=== PATIENT | female | born 1995 | race Two or more races ===

== ENCOUNTER 2024-02-03 10:47 | Emergency (ER) | payer SELFPAY ==
--- NOTE | ~2024-02-03 | XR_ITS ---
EXAMINATION: XR ANKLE, LEFT CLINICAL INFORMATION: Status post fall with left ankle pain COMPARISON: 07/21/2009 TECHNIQUE: AP, lateral, and mortise views of the left ankle. FINDINGS: No fracture. Alignment is anatomic. No erosions. Joint spaces are maintained. Soft tissues are normal. XR/XR ankle LT min 3V IMPRESSION: Normal left ankle.
[2024-02-03 11:01] VITALS: BP 142/90; PULSE 73; RESP 18; TEMP 36.7; O2SAT 100; BMI 41.5
--- NOTE | 2024-02-03 13:12 | ED_ITS ---
HPI - Extremity Injury (Lower) General Chief Complaint: Extremity Injury, Lower Stated Complaint: Fell down stairs - ankle injury Time Seen by Provider: 02/03/24 13:05 Source: patient Mode of arrival: ambulatory Limitations: no limitations History of Present Illness HPI Narrative: 28-year-old female with no significant past medical history presents emergency department with complaints of left ankle pain. She reports she fell down the stairs earlier today and is having difficulty with weight-bearing. She denies any paresthesias, erythema, ecchymosis, or significant swelling of the foot. She reports that she is full range of motion of the that there is pain with range of motion. She denies any head strike, loss consciousness, nausea, vomiting, confusion after the fall and continues to deny these symptoms. Pertinent positives and negatives discussed in HPI Related Data Allergies Allergy/AdvReac Type Severity Reaction Status Date / Time No Known Allergies Allergy Verified 02/03/24 11:01 Review of Systems Review of Systems: Yes all other systems are reviewed and are negative [facility] Social History Social History Advance Directives: No Physical Exam Vital Signs: Vital Signs: Last Vital Signs Temp 98.0 F 02/03/24 11:01 Pulse 73 02/03/24 11:01 Resp 18 02/03/24 11:01 BP 142/90 H 02/03/24 11:01 Pulse Ox 100 02/03/24 11:01 O2 Del Method Room Air 02/03/24 11:01 BMI result Body Mass Index 41.5 Nursing notes and vital signs reviewed. GENERAL APPEARANCE: A&0 x 4, generally well appearing, no acute distress HENMT: Normal to inspection, atraumatic, face symmetrical. Normal external ears, nose, and oropharynx clear. EYE: PERRLA, EOM intact, structures appear normal NECK: Supple without stiffness or restricted ROM. HEART: Normal rate and regular rhythm, normal S1/S2, no M/R/G LUNGS: LS CTA, moving air well. Able to speak in complete sentences. No crackles, wheezes, or rhonchi auscultated BACK: No CVAT, no obvious deformity EXTREMITIES: TTP left lateral ankle with decreased ROM. Normal capillary refill. NEUROLOGICAL: Alert and oriented, moving all 4 extremities with equal strength. CN not formally tested but appearing grossly intact. Observed to ambulate with normal gait. Cognition normal SKIN: Warm and dry without any lesions, rash, or visible sores Medical Decision Making Medical Decision Making MDM Narrative: Old records reviewed for previous imaging, lab studies, ECGs, and notes. Patient was assessed the emergency department with no acute distress or toxicity noted. X-ray left ankle completed which I have independently interpreted as negative for acute fractures or dislocations. Crutches offered and declined. Bruno wrap applied to left ankle and patient educated to rest, ice, compress, and elevate ankle for comfort. Contact information for Orthopedics provided as needed. Patient is safe for discharge at this time with plan for [id number] Tylenol and/or NSAID such as ibuprofen or naproxen for fever/discomfort with dosing as per packaging. HPI, PE, diagnostics, and plan discussed with patient and family with no unanswered questions at this time. Strict return precautions given to return to the emergency department with new, worsening, or concerning emergent symptoms. Recommended to follow-up with there primary care provider in 24-48 hours for further treatment and management. Differential Diagnosis Differential Diagnoses: The differential diagnosis associated with the presentation includes But not limited to fracture, dislocation, sprain, strain, contusion Discharge Plan Discharge Clinical Impression: Ankle sprain and strain Patient Disposition: Home, Self-Care Instructions: Ankle Sprain (ED), How to Use an Elastic Bandage (ED), R.I.C.E. Treatment (ED), Ice Pack Application (ED) Additional Instructions: Your seen in the emergency department for evaluation after falling down the stairs this morning. Your x-rays showed no evidence of fracture or dislocation your symptoms are consistent with a sprain or strain. You are safe for discharge at this time with plan for management of fever or discomfort with [id number] Tylenol and/or NSAID such as ibuprofen or naproxen with dosing as per packaging. Please return to the emergency department with new, worsening, or concerning emergent symptoms. Recommended to follow-up with your primary care provider in 24-48 hours for further treatment and management. Thank you for choosing [facility]. Referrals: [facility] [Provider Group] [facility] [place] [facility] [[facility]] [facility] [place] [facility]] [facility] [Provider Group] Stand Alone Forms: Work/School Release Print Language: Arabic
[2024-02-03 13:47] VITALS: BP 142/90; PULSE 73; RESP 18; TEMP 36.6; O2SAT 100
== END 2024-02-03 13:49 | disposition home or self-care (01) ==
PROVIDERS: Emergency Provider Emergency Medicine
DX: S93.402A Sprain of unspecified ligament of left ankle, initial encounter (principal); S96.912A Strain of unspecified muscle and tendon at ankle and foot level, left foot, initial encounter; W10.9XXA Fall (on) (from) unspecified stairs and steps, initial encounter; Y93.9 Activity, unspecified; Y92.9 Unspecified place or not applicable; Y99.9 Unspecified external cause status
CPT/HCPCS: 73610; 99282; 99283

== ENCOUNTER 2024-07-18 19:16 | Emergency (ER) | payer OTHER, SELFPAY ==
[2024-07-18 19:20] VITALS: BP 147/88; PULSE 71; RESP 18; TEMP -13.4; TEMP 7.9; O2SAT 99; BMI 41.9
--- NOTE | 2024-07-18 19:20 | ED.GENADULT ---
HPI - General Adult General Chief complaint: General Medical Stated complaint: right side of the face pain Time Seen by Provider: 07/18/24 21:56 Source: patient Mode of arrival: ambulatory Limitations: no limitations History of Present Illness ED Provider: DR. Marx HPI narrative: 29-year-old female came in for evaluation of right facial pain for the past 2 weeks, feels like throbbing pain radiating from the right ear toward the right maxillary area, no nasal discharge or congestion, coughing, sneezing, no generalized body ache. No trauma to the face, no dental pain issue with the patient, no pain at the TMJ. Related Data Previous Rx's ?Medication ?Instructions ?Recorded amoxicillin 500 mg-potassium 1 tab PO BID #14 tabs 07/18/24 clavulanate 125 mg tablet (Augmentin) naproxen 500 mg tablet 500 mg PO BID PRN pain #10 tabs 07/18/24 Allergies Allergy/AdvReac Type Severity Reaction Status Date / Time No Known Allergies Allergy Verified 07/18/24 19:22 Review of Systems Review of Systems: All other systems are reviewed and are negative Constitutional: Reports as per HPI and Reports no additional constitutional complaints Eyes: Reports as per HPI and Reports no additional eye complaints Reports system reviewed and no additional complaints, except as documented Cardiovascular: Reports as per HPI and Reports no additional cardiovascular complaints Respiratory: Reports as per HPI and Reports no additional respiratory complaints Gastrointestinal: Reports as per HPI and Reports no additional gastrointestinal complaints Genitourinary: Reports no additional female genitourinary complaints Musculoskeletal: Reports no additional musculoskeletal complaints Skin/Breast: Reports system reviewed and no additional complaints, except as docu Psychiatric: Reports no additional psychiatric complaints Endocrine: Reports no additional endocrine complaints Hematologic/Lymphatic: Reports no additional hematologic/lymphatic complaints Allergic/Immunologic: Reports no additional allergic/immunologic complaints Reports system reviewed and no additional complaints, except as documented and Reports Abnormal speech present [facility] Social History Social History Advance Directives: No Advance Directives Information Provided: No Do you have a plan to hurt others: No Plan Physical Exam ED Vital Signs: Vital Signs - 24 hr 07/18/24 19:20 Temperature 7.9 F L Pulse Rate 71 Respiratory Rate 18 Blood Pressure 147/88 H Pulse Oximetry 99 Oxygen Delivery Method Room Air BMI result Body Mass Index 41.9 Vital signs have been reviewed and appear to be correct. Blood pressure elevated. Heart rate normal. Respiratory rate normal. Temperature normal. Oxygen saturation normal. Appearance: Alert. Oriented X3. No acute distress. Head: Normal external exam. Normocephalic. Atraumatic. No Banda signs noted. No raccoon eyes noted Eyes: PERRLA. EOMI. Conjunctiva and sclera normal. Eyelids normal. ENT: Cerumen impaction in the right auditory canal,Pharynx normal. Uvula midline. Moist mucous membranes. No trismus noted. No drooling noted. No muffled voice noted. Tender on percussion over right maxillary sinus. no TMJ deformity or clicking no pain with opening closing the mouth. Neck: Normal inspection. Neck supple. FROM. No adenopathy. Thyroid Normal. No meningeal signs. No neck mass noted. CVS: Normal heart rate and rhythm. Heart sound normal. No murmurs noted. Pulses normal throughout. Respiratory: No respiratory distress. Painless inspiration. Breath sounds normal. No wheezes/rales/rhonchi noted. Chest nontender. No accessory muscle usage noted or decreased air movement noted. Abdomen: Soft and nontender. Bowel sounds normal in all 4 quadrants. No distention noted. No organomegaly noted. No visible injury noted. Back: No CVA tenderness. Full range of motion noted. Skin: Skin warm and dry. Normal skin color. Normal skin turgor. No rashes/lesions/lacerations noted. Extremities: No lower extremity edema. Extremities exhibit normal range of motion. Extremities nontender. Neuro: Oriented X 3. Cranial nerve exam: II-XII are grossly intact No motor deficit. No sensory deficit. Reflexes normal. Course Course Course Narrative: This is an RME done by LM Duarte: Additional HPI, ROS, PE not included below will be deferred to primary provider. 29yo F presenting with right sided throbbing facial pain for several weeks radiating down from the congregation. Denies headache, fevers, chills, recent illness, tingling, numbness. Patient states she has a broken tooth on the ipsilateral side of face. Appearance: Alert.? Oriented X3.? No acute cardiopulmonary distress distress.? Head: Normocephalic, atraumatic. CVS: Pulses normal.?Temporal pulse 1+ Respiratory: No respiratory distress.? Skin: ? Normal skin color. No rash on face/ Neuro: Oriented X 3. EOM intact. Face symmetric at rest, with smile, and eyebrow raise. Reevaluation(s) Reevaluation #1: right auditory canal cerumen impaction s/p auditory canal irrigation and disimpaction of the cerumen. Right maxillary sinus pain and tenderness on percussion consistent with sinusitis. Will start the patient on Augmentin, naproxen and follow-up with PCP. Time: 22:47 Medical Decision Making Differential Diagnosis Differential Diagnoses: The differential diagnosis associated with the presentation includes ( Acute maxillary sinusitis, dental decay, dental abscess, TMJ arthritis.) Admission/Observation Consideration of admission/observation: Escalation of care including admission/observation considered Discharge Plan Discharge Clinical Impression: Cerumen impaction, Acute maxillary sinusitis Patient Disposition: Home, Self-Care Instructions: Sinusitis (ED) Prescriptions: New amoxicillin-pot clavulanate [Augmentin] 500-125 mg tablet 1 tab PO BID Qty: 14 0RF naproxen 500 mg tablet 500 mg PO BID PRN (Reason: pain) Qty: 10 0RF Referrals: Yumiko Falk MD [Primary Care Provider] - Print Language: Frisian
[2024-07-18] MEDS: NaPROXEN 500 MG TABLET PO (22:56)
[2024-07-18] MEDS: oxyCODONE HCl Immed Release 5 MG TABLET PO (22:57)
[2024-07-18] MEDS: Amoxicillin/Potassium Clav 500 MG TABLET PO (22:57)
[2024-07-18 22:59] VITALS: BP 147/88; PULSE 71; RESP 18; TEMP 36.6; O2SAT 99
== END 2024-07-18 23:00 | disposition home or self-care (01) ==
PROVIDERS: Emergency Provider Emergency Medicine; PCP Internal Medicine
DX: H61.21 Impacted cerumen, right ear (principal); J01.00 Acute maxillary sinusitis, unspecified
CPT/HCPCS: 69209; 99283

== ENCOUNTER 2024-08-29 13:46 | Outpatient (AMB) | payer OTHER, SELFPAY ==
--- NOTE | 2024-08-29 13:48 | A.OFFPC_ITS ---
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 Allergies No Known Allergies Allergy (Verified 08/29/24 13:48) Medication List - Last Reconciled 08/29/24 by Yumiko Falk MD No Known Home Meds Tobacco use date assessed: 08/29/24 Dental Screening Dental Screen Date: 08/29/24 Did you have a dental visit in the last 12 months?: Yes Did you have a dental problem in the last 6 months where you did not have access to dental care?: No Was dental information given to patient?: Patient has dentist HPI MAIL [employer] Est Care HPI Details Patient is 29-year-old female came in for establish care visit and physical examination Patient is in need of OBGYN, she has heavy menstrual cycle which is continues I see that her depression screening is positive Patient says that she does have thoughts of suicide but she will not act on them She has been depressed for the past 2 years after she broke up with a boyfriend At that time she found out that she has encountered herpes She is tearful talking about it Explained to her what herpes infection is like, it is a cold so virus which is a common problem And she can take valacyclovir if needed, she says that she gets break out close to her periods and she used to take valacyclovir and then she stopped I see that her blood pressure is slightly elevated as well She does admit to snoring at night we will need a sleep study down the road For now I am treating her with Wellbutrin 150 mg to be taken in the morning She is having difficulty sleeping at night, for that I have sent lorazepam 0.5 mg as patient also suffers from severe anxiety which present with nausea She also drink alcohol every now and then, we talked about nausea and alcohol Omeprazole might help which is [id number] or I can prescribe to her later She is complaining of urgency of urination which started when she gained a lot of weight 2 years ago We will talk about that more in this coming future For now she is to return in 3 weeks to follow-up on depression OBGYN referral placed Lab order placed to be done fasting [facility] Social History Housing: House Patient Tobacco Use Status: Never used Tobacco e-Cigarette/Vaping Use: Currently Using service: No Cognitive needs: No Hearing needs: No Vision needs: Yes Questionnaire PHQ-9 Over the last 2 weeks, how often have you been bothered by any of the following problems? 1. Little interest or pleasure in doing things: more than half the days 2. Feeling down, depressed, or hopeless: more than half the days 3. Trouble falling or staying asleep, or sleeping too much: nearly every day 4. Feeling tired or having little energy: nearly every day 5. Poor appetite or overeating: nearly every day 6. Feeling bad about yourself - or that you are a failure or have let yourself or your family down: nearly every day 7. Trouble concentrating on things, such as reading the newspaper or watching television: more than half the days 8. Moving or speaking so slowly that other people could have noticed. Or the opposite - being so fidgety or restless that you have been moving around a lot more than usual: nearly every day 9. Thoughts that you would be better off or of hurting yourself in some way: several days Total score: 22 Depression Screening Interpretation: Positive Depression Screening Follow-up: New Medication prescribed and Follow-up Visit Requested Depression Screening Done: Yes 24022 - PHQ-9 Billing: Yes Source: Developed by Drs. Helio Matute, Celina Monge, Nasim Charles and colleagues, with an educational johnson from [employer] Thrive Questionnaire Date Thrive assessed: 08/29/24 I am a: Patient What is your living situation today?: I have a steady place to live Within the past 12 months, did the food you bought not last and you didn't have the money to get more?: Never true Within the past 12 months, did you worry whether your food would run out before you got money to buy more?: I choose not to answer this question Do you have trouble paying for medicines?: No Do you have trouble getting transportation to medical appointments?: No Do you have trouble paying your heating and electricity bill?: No Do you have trouble taking care of your child, family member or friend?: No Do you have trouble with day-to-day activities such as bathing, preparing meals, shopping, managing finances, etc.?: No Are you currently unemployed and looking for a job?: No Are you interested in more education?: No Please select the resources that you would like help with: None Currently or been in a relationship where the following occur: No concerns reported THRIVE Score: 0 AUDIT C Alcohol Use Questionnaire (AUDIT-C) 1. How often do you have a drink containing alcohol?: 2-3 times a week 2. How many drinks containing alcohol do you have on a typical day when you are drinking?: 5 or 6 3. How often do you have six or more drinks on one occasion?: Weekly Total Score: 8 Score Reviewed/Action Taken: Yes DANIELE-7 AMB Questionnaire DANIELE-7 Date DANIELE - 7 assessed: 08/29/24 Feeling nervous, anxious, or on edge: 3 = Nearly every day Not being able to stop or control worryin = Several days Worrying too much about different things: 2 = More than half the days Trouble relaxin = More than half the days Being so restless that it is hard to sit still: 1 = Several days Becoming easily annoyed or irritable: 3 = Nearly every day Feeling afraid as if something awful might happen: 3 = Nearly every day Total DANIELE-7 score (0-4 normal; 5-9 mild; 10-14 moderate; 15-21 severe): 15 Source: Developed by Drs. Helio Matute, Celina Monge, Nasim Charles and colleagues, with an educational johnson from [employer] DANIELE-7 Assessment Billing DANIELE-7 Assessment Tool: DANIELE-7 Assessment 61535 Review of Systems Const Denies chills and Denies fever(s) Eyes Denies blurry vision ENT Denies nasal discharge, Denies nasal obstruction, Denies odynophagia and Denies sinus pain Card Denies chest pain at rest and Denies chest pain with activity Resp Denies cough and Denies hemoptysis GI Denies diarrhea, Denies odynophagia, Denies vomiting and Denies hematemesis Reports as per HPI Musc Denies abnormal gait Skin/Breast Reports as per HPI Neuro Denies Neuro-related abnormal movements, Denies Abnormal speech present, Denies abnormal gait and Denies Sensory deficit (Neuro) Endo Reports as per HPI Lenny/Lymph Reports as per HPI Aller/Immun Reports as per HPI Physical exam (Primary Care) Vital Signs: Last Vital Signs Pulse 78 08/29/24 13:51 BP 138/82 08/29/24 13:51 Pulse Ox 99 08/29/24 13:51 Oxygen Delivery Method Room Air 08/29/24 13:51 BMI result Body Mass Index 41.4 Tobacco/Smoking Status: Tobacco use Status Tobacco use date assessed 08/29/24 08/29/24 13:49 Patient Tobacco Use Status Never used Tobacco 08/29/24 13:54 e-Cigarette/Vaping Use Currently Using 08/29/24 13:54 PHQ-9: PHQ-9 Score PHQ-9: Total score 08/29/24 13:49 Depression Screening Interpretation: Positive Depression Screening Follow-up: New Medication prescribed and Follow-up Visit Requested Thrive Assessment: Date of Thrive Assessment Date Thrive assessed 08/29/24 08/29/24 13:49 Currently or been in a relationship where the following occur: No concerns reported Const General: cooperative, comfortable and no acute distress Orientation/consciousness: patient oriented x3 HENMT Head: Yes normocephalic and Yes atraumatic Eyes General: appearance normal, both eyes and all related structures Pupils: Equal, round and reactive pupils present EOM: EOMs intact bilaterally Neck Neck: Yes supple and No lymphadenopathy Thyroid: Thyroid normal Lymphatic: no lymphadenopathy noted Resp Effort & Inspection: normal respiratory effort and able to speak in complete sentences Auscultation: clear to auscultation bilaterally Cardio Heart sounds: S1 normal heart sound present and S2 normal heart sound present GI Palpation (GI): Soft to palpation and nontender Auscultation: normal bowel sounds General: Yes no CVA tenderness Back/Spine/Pelvis Back: no CVA tenderness Skin General skin exam: elasticity normal and turgor normal Neuro General: patient oriented x3 and gait normal Cranial nerves: Yes Equal, round and reactive pupils present Speech: No Abnormal speech present Sensory Exam: No Sensory deficit (Neuro) Coordination: tandem gait normal and Romberg test negative Extrem General: Yes normal exam except as noted and No edema Coding Level of Care Code New Pt Level 4 (15341) New Pt Prev Care 18-39yr(23132 Diagnoses Encounter for general adult medical examination with abnormal findings Z00.01 Major depressive disorder, severe F32.2 Urge incontinence of urine N39.41 Panic anxiety syndrome F41.0 Chronic nausea R11.0 Snoring R06.83 Prehypertension R03.0 Morbid obesity due to excess calories E66.01 Dysfunctional uterine bleeding N93.8 Additional Codes DANIELE-7 Assessment Billing - DANIELE-7 Assessment Tool: DANIELE-7 Assessment 97954 ([id number]) Assessment & Plan Assessment & Plan (1) Encounter for general adult medical examination with abnormal findings: Code(s): Z00.01 - Encounter for general adult medical examination with abnormal findings Category: Medical (2) Major depressive disorder, severe: Code(s): F32.2 - Major depressive disorder, single episode, severe without psychotic features Category: Medical (3) Urge incontinence of urine: Code(s): N39.41 - Urge incontinence Category: Medical (4) Panic anxiety syndrome: Code(s): F41.0 - Panic disorder [episodic paroxysmal anxiety] Category: Medical (5) Chronic nausea: Code(s): R11.0 - Nausea Category: Medical (6) Snoring: Code(s): R06.83 - Snoring Category: Medical (7) Prehypertension: Code(s): R03.0 - Elevated blood-pressure reading, without diagnosis of hypertension Category: Medical (8) Morbid obesity due to excess calories: Code(s): E66.01 - Morbid (severe) obesity due to excess calories Category: Medical (9) Dysfunctional uterine bleeding: Code(s): N93.8 - Other specified abnormal uterine and vaginal bleeding Category: Medical Plan Patient is 29-year-old female came in for establish care visit and physical examination Patient is in need of OBGYN, she has heavy menstrual cycle which is continues I see that her depression screening is positive Patient says that she does have thoughts of suicide but she will not act on them She has been depressed for the past 2 years after she broke up with a boyfriend At that time she found out that she has encountered herpes She is tearful talking about it Explained to her what herpes infection is like, it is a cold so virus which is a common problem And she can take valacyclovir if needed, she says that she gets break out close to her periods and she used to take valacyclovir and then she stopped I see that her blood pressure is slightly elevated as well She does admit to snoring at night we will need a sleep study down the road For now I am treating her with Wellbutrin 150 mg to be taken in the morning She is having difficulty sleeping at night, for that I have sent lorazepam 0.5 mg as patient also suffers from severe anxiety which present with nausea She also drink alcohol every now and then, we talked about nausea and alcohol Omeprazole might help which is [id number] or I can prescribe to her later She is complaining of urgency of urination which started when she gained a lot of weight 2 years ago We will talk about that more in this coming future For now she is to return in 3 weeks to follow-up on depression OBGYN referral placed Lab order placed to be done fasting Orders: Orders Complete Blood Count Auto Diff Today E66.01 - Morbid (severe) obesity due to excess calories, Z00.01 - Encounter for general adult medical examination with abnormal findings Comprehensive [place]. Panel Fast Today E66.01 - Morbid (severe) obesity due to excess calories, Z00.01 - Encounter for general adult medical examination with abnormal findings Vitamin D 25-OH (D2 and D3) Today E66.01 - Morbid (severe) obesity due to excess calories, Z00.01 - Encounter for general adult medical examination with abnormal findings TSH reflex Free T4 Today E66.01 - Morbid (severe) obesity due to excess calories, Z00.01 - Encounter for general adult medical examination with abnormal findings Lipid Panel Today E66.01 - Morbid (severe) obesity due to excess calories, Z00.01 - Encounter for general adult medical examination with abnormal findings Referrals [employer]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
[2024-08-29 13:51] VITALS: BP 138/82; PULSE 78; O2SAT 99; BMI 41.4
== END 2024-08-29 14:23 | disposition home or self-care (01) ==
PROVIDERS: PCP Internal Medicine; Visit Provider Internal Medicine
DX: Z00.00 Encounter for general adult medical examination without abnormal findings (principal); F32.2 Major depressive disorder, single episode, severe without psychotic features; E66.01 Morbid (severe) obesity due to excess calories; Z68.41 Body mass index [BMI] 40.0-44.9, adult; N39.41 Urge incontinence; F41.0 Panic disorder [episodic paroxysmal anxiety]; N93.8 Other specified abnormal uterine and vaginal bleeding; R11.0 Nausea; R06.83 Snoring; R03.0 Elevated blood-pressure reading, without diagnosis of hypertension

== ENCOUNTER → 2024-08-29 13:46 | Outpatient (BNVA) | payer OTHER, SELFPAY | PROVIDERS: PCP Internal Medicine; Visit Provider Internal Medicine | DX: Z00.01 Encounter for general adult medical examination with abnormal findings (principal); F32.2 Major depressive disorder, single episode, severe without psychotic features; N39.41 Urge incontinence; F41.0 Panic disorder [episodic paroxysmal anxiety]; R11.0 Nausea; R06.83 Snoring; R03.0 Elevated blood-pressure reading, without diagnosis of hypertension; E66.01 Morbid (severe) obesity due to excess calories; Z68.41 Body mass index [BMI] 40.0-44.9, adult; N93.8 Other specified abnormal uterine and vaginal bleeding | CPT/HCPCS: 96127 ==

== ENCOUNTER 2024-09-16 10:03 | Outpatient (REF) | payer OTHER, SELFPAY ==
[2024-09-16 11:06] LABS: MANUAL DIFF FLAG NO
[2024-09-16 11:28] LABS: Basophils Percent Auto 0.2 % (0-2); Eosinophils Absolute Auto 0.3 X10*3/uL (0.0-0.4); Eosinophils Percent Auto 2.6 % (0-4); Hematocrit 36.8 % (37.0-47.0); Hemoglobin 11.7 g/dl (12.0-16.0); Imm Gran Abs Auto 0.05 X10*3/uL (0.00-0.03); Imm Gran Pct Auto 0.5 % (0.0-0.4); Lymphocytes Absolute Auto 2.6 X10*3/uL (1.2-4.9); Lymphocytes Percent Auto 24.2 % (20-40); Mean Corpuscular HGB Conc 31.8 g/dl (31.0-35.0); Mean Corpuscular Hemoglobin 25.1 pg (27.0-33.0); Mean Platelet Volume 11.2 fL (9.4-12.3); Monocytes Absolute Auto 0.7 X10*3/uL (0.1-1.2); Monocytes Percent Auto 6.2 % (2-11); Neutrophils Percent Auto 66.3 % (45-73); Platelet Count 328 X10*3/uL (160-400); Red Blood Count 4.66 X10*6/uL (4.20-5.50); Red Cell Distribution Width 15.1 % (11.0-16.0); White Blood Count 10.6 X10*3/uL (4.8-10.8)
[2024-09-16 12:04] LABS: Alanine Aminotransferase 17 U/L (0-31); Albumin Level 4.3 g/dL (3.5-5.0); Alkaline Phosphatase 64 U/L (39-117); Anion Gap 11 (12-20); Aspartate Amino Transferase 15 U/L (5-31); Bilirubin Total 0.5 mg/dL (0.0-1.0); Blood Urea Nitrogen 12 mg/dL (9-16); Calcium 9.6 mg/dL (8.4-10.2); Carbon Dioxide 24 mmol/L (22-29); Chloride 108 mmol/L (96-108); Cholesterol 129 mg/dL (<200); Estimated Glomerular Filt Rate > 60; Glucose Fasting 99 mg/dL (60-99); HDL Cholesterol 27 mg/dL (>40); LDL Cholesterol Calculated 72 mg/dL (<100); Potassium 4.3 mmol/L (3.3-5.1); Sodium 139 mmol/L (135-145); Total Protein 7.3 g/dL (6.5-8.0); Triglycerides 151 mg/dL (<150)
[2024-09-16 12:07] LABS: TSH reflex Free T4 1.55 uIU/mL (0.32-4.0)
[2024-09-21 16:39] LABS: Vitamin D 25-OH, D2 <4 ng/mL; Vitamin D 25-OH, D3 15 ng/mL; Vitamin D 25-OH, Total 15 ng/mL (30-100)
== END 2024-09-16 10:04 | disposition home or self-care (01) ==
LOC: HO.HMGCLDS 10:03
PROVIDERS: PCP Internal Medicine; Visit Provider Internal Medicine
DX: Z00.01 Encounter for general adult medical examination with abnormal findings (principal); E66.01 Morbid (severe) obesity due to excess calories
CPT/HCPCS: 36415; 80053; 80061; 82306; 84443; 85025

== ENCOUNTER 2024-09-20 14:22 | Outpatient (AMB) | payer OTHER, SELFPAY ==
--- NOTE | 2024-09-20 14:31 | A.OFFPC_ITS ---
Vital Signs 09/20/24 14:32 Height 5 ft 4 in Weight 242 lb BMI 41.5 BP 120/82 Blood Pressure Location Lt brachial Position Sitting Pulse 96 Pulse Source Pulse Oximeter Pulse Oximetry (%) 99 Oxygen Delivery Method Room Air Intake Visit Reasons: 3 week follow up Allergies No Known Allergies Allergy (Verified 08/29/24 13:48) Medication List - Last Reconciled 09/20/24 by Yumiko Falk MD bupropion HCl SR (Wellbutrin SR) 150 mg PO QAM lorazepam 0.5 mg PO BEDTIME PRN Tobacco use date assessed: 09/20/24 Dental Screening Dental Screen Date: 09/20/24 Did you have a dental visit in the last 12 months?: Yes Did you have a dental problem in the last 6 months where you did not have access to dental care?: No Was dental information given to patient?: Patient has dentist HPI 3 week follow up HPI Details Patient is 29-year-old female came in today follow-up appointment She was started Wellbutrin 150 mg along with lorazepam to be taken at night As patient was severely depressed She is feeling much better she is able to sleep now depression has improved She is having difficulty losing weight her BMI is 41.5 I am increasing the Wellbutrin to 300 mg to aid in weight loss Patient also have urge incontinence which is causing distress I have sent Detrol 2 mg to be taken in the morning Labs done recently reviewed with the patient she has microcytic anemia with hemoglobin of 11.7 Secondary to heavy periods, she is to start iron supplement, sent Follow-up 3 months [facility] Social History Housing: House Patient Tobacco Use Status: Never used Tobacco e-Cigarette/Vaping Use: Currently Using service: No Cognitive needs: No Hearing needs: No Vision needs: Yes Questionnaire Thrive Questionnaire Date Thrive assessed: 08/22/24 I am a: Patient What is your living situation today?: I have a steady place to live Within the past 12 months, did the food you bought not last and you didn't have the money to get more?: Never true Within the past 12 months, did you worry whether your food would run out before you got money to buy more?: I choose not to answer this question Do you have trouble paying for medicines?: No Do you have trouble getting transportation to medical appointments?: No Do you have trouble paying your heating and electricity bill?: No Do you have trouble taking care of your child, family member or friend?: No Do you have trouble with day-to-day activities such as bathing, preparing meals, shopping, managing finances, etc.?: No Are you currently unemployed and looking for a job?: No Are you interested in more education?: No Please select the resources that you would like help with: None Currently or been in a relationship where the following occur: No concerns reported THRIVE Score: 0 DANIELE-7 AMB Questionnaire DANIELE-7 Date DANIELE - 7 assessed: 08/29/24 Source: Developed by Drs. Helio Matute, Celina Monge, Nasim Charles and colleagues, with an educational johnson from [employer]. Review of Systems Const Denies chills and Denies fever(s) ENT Denies epistaxis and Denies nasal discharge Card Denies chest pain Resp Denies chest congestion, Denies cough and Denies hemoptysis GI Denies diarrhea and Denies nausea Skin/Breast Denies rash Neuro Reports no additional complaints Psych Reports no additional complaints Endo Reports no additional complaints Physical exam (Primary Care) Vital Signs: Last Vital Signs Pulse 96 09/20/24 14:32 BP 120/82 09/20/24 14:32 Pulse Ox 99 09/20/24 14:32 Oxygen Delivery Method Room Air 09/20/24 14:32 BMI result Body Mass Index 41.5 Tobacco/Smoking Status: Tobacco use Status Tobacco use date assessed 09/20/24 09/20/24 14:34 Patient Tobacco Use Status Never used Tobacco 09/20/24 14:34 e-Cigarette/Vaping Use Currently Using 09/20/24 14:34 Thrive Assessment: Date of Thrive Assessment Date Thrive assessed 08/22/24 09/20/24 14:34 Currently or been in a relationship where the following occur: No concerns reported Const General: cooperative, comfortable and no acute distress Orientation/consciousness: patient oriented x3 HENMT Head: Yes normocephalic Eyes General: appearance normal, both eyes and all related structures Neck Neck: Yes supple Resp Effort & Inspection: normal respiratory effort, no cough and no stridor Cardio Rhythm: regular rhythm Heart sounds: S1 normal heart sound present and S2 normal heart sound present Skin General skin exam: turgor normal Neuro General: patient oriented x3, tone normal and moves all extremities Extrem Right lower extremity: no edema Left lower extremity: no edema Coding Level of Care Code Est Pt Level 4 (57000) Diagnoses Major depressive disorder, severe F32.2 Urge incontinence of urine N39.41 Panic anxiety syndrome F41.0 Anxiety, generalized F41.1 Dysfunctional uterine bleeding N93.8 Microcytic anemia D50.9 Assessment & Plan Assessment & Plan (1) Major depressive disorder, severe: Code(s): F32.2 - Major depressive disorder, single episode, severe without psychotic features Category: Medical (2) Urge incontinence of urine: Code(s): N39.41 - Urge incontinence Category: Medical (3) Panic anxiety syndrome: Code(s): F41.0 - Panic disorder [episodic paroxysmal anxiety] Category: Medical (4) Anxiety, generalized: Code(s): F41.1 - Generalized anxiety disorder Category: Medical (5) Dysfunctional uterine bleeding: Code(s): N93.8 - Other specified abnormal uterine and vaginal bleeding Category: Medical (6) Microcytic anemia: Code(s): D50.9 - Iron deficiency anemia, unspecified Category: Medical Plan Patient is 29-year-old female came in today follow-up appointment She was started Wellbutrin 150 mg along with lorazepam to be taken at night As patient was severely depressed She is feeling much better she is able to sleep now depression has improved She is having difficulty losing weight her BMI is 41.5 I am increasing the Wellbutrin to 300 mg to aid in weight loss Patient also have urge incontinence which is causing distress I have sent Detrol 2 mg to be taken in the morning Labs done recently reviewed with the patient she has microcytic anemia with hemoglobin of 11.7 Secondary to heavy periods, she is to start iron supplement, sent Follow-up 3 months Medications: New ferrous sulfate Take with orange juice on empty stomach 324 mg PO .qd 90 days 90 tabs 0RF bupropion HCl XL (Wellbutrin XL) 300 mg PO QAM 90 tabs 0RF tolterodine (Detrol) 2 mg PO QAM 30 tabs 0RF Bladder disorder Refilled lorazepam 0.5 mg PO BEDTIME PRN 30 tabs 0RF anxiety Discontinued bupropion HCl SR (Wellbutrin SR) Discontinued Reason: Doctor's Order 150 mg PO QAM 30 tabs 0RF
[2024-09-20 14:32] VITALS: BP 120/82; PULSE 96; O2SAT 99; BMI 41.5
== END 2024-09-20 14:49 | disposition home or self-care (01) ==
PROVIDERS: PCP Internal Medicine; Visit Provider Internal Medicine
DX: F32.2 Major depressive disorder, single episode, severe without psychotic features (principal); N39.41 Urge incontinence; F41.0 Panic disorder [episodic paroxysmal anxiety]; F41.1 Generalized anxiety disorder; N93.8 Other specified abnormal uterine and vaginal bleeding; D50.9 Iron deficiency anemia, unspecified

== ENCOUNTER → 2024-09-20 14:22 | Outpatient (BNVA) | payer OTHER, SELFPAY | PROVIDERS: PCP Internal Medicine; Visit Provider Internal Medicine ==

== ENCOUNTER 2024-12-26 14:48 | Outpatient (AMB) | payer OTHER, SELFPAY ==
--- NOTE | 2024-12-26 14:49 | A.OFFPC_ITS ---
Vital Signs 12/26/24 14:50 Height 5 ft 4 in Weight 241 lb 2 oz BMI 41.4 BP 122/78 Blood Pressure Location Rt brachial Position Sitting Pulse 84 Pulse Source Pulse Oximeter Temp 98.1 F Temp Source Oral Pulse Oximetry (%) 98 Oxygen Delivery Method Room Air Intake Visit Reasons: 3 months follow up Allergies No Known Allergies Allergy (Verified 12/26/24 14:49) Medication List - Last Reconciled 12/26/24 by Yumiko Falk MD bupropion HCl XL (Wellbutrin XL) 300 mg PO QAM cholecalciferol (vitamin D3) 25 mcg PO DAILY 90 days ferrous sulfate 324 mg PO .qd 90 days lorazepam 0.5 mg PO BEDTIME PRN tolterodine (Detrol) 2 mg PO QAM Tobacco use date assessed: 12/26/24 Dental Screening Dental Screen Date: 12/26/24 Did you have a dental visit in the last 12 months?: Yes Did you have a dental problem in the last 6 months where you did not have access to dental care?: No Was dental information given to patient?: Patient has dentist HPI 3 months follow up HPI Details - The patient is a 29-year-old female ac tively managing multiple health concerns including Major Depressive Disorder, insomnia, urinary urgency, and iron deficiency anemia. - Wellbutrin 300 mg is currently used fo r depression; the patient will soon need a refill. - Lorazepam is utilized for insomnia, wi th the patient ensuring timely refills and achieving adequate sleep. - Notable heavy menstrual periods contri bute to iron deficiency anemia; the patient inconsistently takes iron supplements to manage this condition. - Urinary urgency persists untreated as the patient has the prescribed medication at home yet has not initiated it. Referral was placed for OBGYN which patient has not made appointment yet Problem List - Major Depressive Disorder - Insomnia - Iron Deficiency Anemia - Urinary Urgency/stress incontinence Patient Instructions - Continue taking Wellbutrin 300 mg for depression management. Secure a refill as needed. - Maintain use of Lorazepam for insomnia as prescribed, with the necessary refills. - Resume and consistently take iron supp lements to address iron deficiency ane vishal, especially given heavy periods. - Consider starting Detrol for urinary u rgency as prescribed. - Schedule and attend follow-up lab work in three months to assess hemoglobin levels. - Contact the OBGYN office during busine ss hours to schedule an appointment, and respond to any calls promptly to facilitate booking. Follow-up 3 months Review of Systems - General: No fever no chills - Neurological: No headaches no dizziness - Ear nose throat: No sore throat no hearing difficulty no ear pain - Cardiovascular: No syncope, no chest pain, no palpitations - Gastrointestinal: No nausea vomiting or diarrhea - Endocrine: No polyuria polydipsia no heat intolerance - Genitourinary: No dysuria , no blood in urine Physical Exam - General: No acute distress - HEENT: No acute findings - Neck: Supple - Respiratory system: Able to talk in f ull sentences, no audible wheeze - cardiovascular: S1-S2 regular in rat e and rhythm - Gastrointestinal: No pain - Extremities: No new findings - SEWER DIGGER: Alert awake oriented x3 motor se nsory intact - Skin: Normal turgor PFSH Social History Housing: House Patient Tobacco Use Status: Never used Tobacco e-Cigarette/Vaping Use: Currently Using service: No Cognitive needs: No Hearing needs: No Vision needs: Yes Questionnaire PHQ-9 Over the last 2 weeks, how often have you been bothered by any of the following problems? 1. Little interest or pleasure in doing things: more than half the days 2. Feeling down, depressed, or hopeless: several days 3. Trouble falling or staying asleep, or sleeping too much: nearly every day 4. Feeling tired or having little energy: more than half the days 5. Poor appetite or overeating: nearly every day 6. Feeling bad about yourself - or that you are a failure or have let yourself or your family down: more than half the days 7. Trouble concentrating on things, such as reading the newspaper or watching television: more than half the days 8. Moving or speaking so slowly that other people could have noticed. Or the opposite - being so fidgety or restless that you have been moving around a lot more than usual: more than half the days 9. Thoughts that you would be better off or of hurting yourself in some way: not at all Total score: 17 Depression Screening Interpretation: Positive Depression Screening Follow-up: Existing condition and In treatment Depression Screening Done: Yes [id number] - PHQ-9 Billing: Yes Source: Developed by Drs. Helio Matute, Celina Monge, Nasim Charles and colleagues, with an educational johnson from [employer]. Thrive Questionnaire Date Thrive assessed: 12/26/24 I am a: Patient What is your living situation today?: I have a steady place to live Within the past 12 months, did the food you bought not last and you didn't have the money to get more?: Never true Within the past 12 months, did you worry whether your food would run out before you got money to buy more?: Never true Do you have trouble paying for medicines?: No Do you have trouble getting transportation to medical appointments?: No Do you have trouble paying your heating and electricity bill?: No Do you have trouble taking care of your child, family member or friend?: No Do you have trouble with day-to-day activities such as bathing, preparing meals, shopping, managing finances, etc.?: No Are you currently unemployed and looking for a job?: No Are you interested in more education?: No Please select the resources that you would like help with: None Currently or been in a relationship where the following occur: No concerns reported THRIVE Score: 0 AUDIT C Alcohol Use Questionnaire (AUDIT-C) 1. How often do you have a drink containing alcohol?: 2-3 times a week 2. How many drinks containing alcohol do you have on a typical day when you are drinking?: 3 or 4 3. How often do you have six or more drinks on one occasion?: Weekly Total Score: 7 Score Reviewed/Action Taken: Yes DANIELE-7 AMB Questionnaire DANIELE-7 Date DANIELE - 7 assessed: 12/26/24 Feeling nervous, anxious, or on edge: 2 = More than half the days Not being able to stop or control worryin = Nearly every day Worrying too much about different things: 3 = Nearly every day Trouble relaxin = More than half the days Being so restless that it is hard to sit still: 1 = Several days Becoming easily annoyed or irritable: 2 = More than half the days Feeling afraid as if something awful might happen: 3 = Nearly every day Total DANIELE-7 score (0-4 normal; 5-9 mild; 10-14 moderate; 15-21 severe): 16 Source: Developed by Drs. Helio Matute, Celina Monge, Nasim Charles and colleagues, with an educational johnson from [employer]. DANIELE-7 Assessment Billing DANIELE-7 Assessment Tool: DANIELE-7 Assessment 78511 Physical exam (Primary Care) Vital Signs: Last Vital Signs Temp 98.1 F 12/26/24 14:50 Pulse 84 12/26/24 14:50 BP 122/78 12/26/24 14:50 Pulse Ox 98 12/26/24 14:50 Oxygen Delivery Method Room Air 12/26/24 14:50 BMI result Body Mass Index 41.4 Tobacco/Smoking Status: Tobacco use Status Tobacco use date assessed 12/26/24 12/26/24 14:58 Patient Tobacco Use Status Never used Tobacco 12/26/24 14:58 e-Cigarette/Vaping Use Currently Using 12/26/24 14:58 PHQ-9: PHQ-9 Score PHQ-9: Total score 17 12/26/24 14:58 Depression Screening Interpretation: Positive Depression Screening Follow-up: Existing condition and In treatment Thrive Assessment: Date of Thrive Assessment Date Thrive assessed 12/26/24 12/26/24 14:58 Currently or been in a relationship where the following occur: No concerns reported Coding Level of Care Code Est Pt Level 4 (84545) Diagnoses Major depressive disorder, severe F32.2 Urge incontinence of urine N39.41 Panic anxiety syndrome F41.0 Dysfunctional uterine bleeding N93.8 Microcytic anemia D50.9 Additional Codes DANIELE-7 Assessment Billing - DANIELE-7 Assessment Tool: DANIELE-7 Assessment 67950 ([id number]) PHQ-9 - 55879 - PHQ-9 Billing: Yes ([id number]) Assessment & Plan Assessment & Plan (1) Major depressive disorder, severe: Code(s): F32.2 - Major depressive disorder, single episode, severe without psychotic features Category: Medical (2) Urge incontinence of urine: Code(s): N39.41 - Urge incontinence Category: Medical (3) Panic anxiety syndrome: Code(s): F41.0 - Panic disorder [episodic paroxysmal anxiety] Category: Medical (4) Dysfunctional uterine bleeding: Code(s): N93.8 - Other specified abnormal uterine and vaginal bleeding Category: Medical (5) Microcytic anemia: Code(s): D50.9 - Iron deficiency anemia, unspecified Category: Medical Plan - The patient is a 29-year-old female actively managing multiple health concerns including Major Depressive Disorder, insomnia, urinary urgency, and iron deficiency anemia. - Wellbutrin 300 mg is currently used for depression; the patient will soon need a refill. - Lorazepam is utilized for insomnia, with the patient ensuring timely refills and achieving adequate sleep. - Notable heavy menstrual periods contribute to iron deficiency anemia; the patient inconsistently takes iron supplements to manage this condition. - Urinary urgency persists untreated as the patient has the prescribed medication at home yet has not initiated it. Referral was placed for OBGYN which patient has not made appointment yet Problem List - Major Depressive Disorder - Insomnia - Iron Deficiency Anemia - Urinary Urgency/stress incontinence Patient Instructions - Continue taking Wellbutrin 300 mg for depression management. Secure a refill as needed. - Maintain use of Lorazepam for insomnia as prescribed, with the necessary refills. - Resume and consistently take iron supplements to address iron deficiency anemia, especially given heavy periods. - Consider starting Detrol for urinary urgency as prescribed. - Schedule and attend follow-up lab work in three months to assess hemoglobin levels. - Contact the OBGYN office during business hours to schedule an appointment, and respond to any calls promptly to facilitate booking. Follow-up 3 months labs are needed before next visit Orders: Orders Complete Blood Count Auto Diff Today D50.9 - Iron deficiency anemia, unspecified, F32.2 - Major depressive disorder, single episode, severe without psychotic features, F41.0 - Panic disorder [episodic paroxysmal anxiety], N39.41 - Urge incontinence, N93.8 - Other specified abnormal uterine and vaginal bleeding Comprehensive Met. Panel Today D50.9 - Iron deficiency anemia, unspecified, F32.2 - Major depressive disorder, single episode, severe without psychotic features, F41.0 - Panic disorder [episodic paroxysmal anxiety], N39.41 - Urge incontinence, N93.8 - Other specified abnormal uterine and vaginal bleeding Ferritin Today D50.9 - Iron deficiency anemia, unspecified, F32.2 - Major depressive disorder, single episode, severe without psychotic features, F41.0 - Panic disorder [episodic paroxysmal anxiety], N39.41 - Urge incontinence, N93.8 - Other specified abnormal uterine and vaginal bleeding TSH reflex Free T4 Today D50.9 - Iron deficiency anemia, unspecified, F32.2 - Major depressive disorder, single episode, severe without psychotic features, F41.0 - Panic disorder [episodic paroxysmal anxiety], N39.41 - Urge incontinence, N93.8 - Other specified abnormal uterine and vaginal bleeding Vitamin D 25-OH (D2 and D3) Today D50.9 - Iron deficiency anemia, unspecified, F32.2 - Major depressive disorder, single episode, severe without psychotic features, F41.0 - Panic disorder [episodic paroxysmal anxiety], N39.41 - Urge incontinence, N93.8 - Other specified abnormal uterine and vaginal bleeding Medications: Refilled bupropion HCl XL (Wellbutrin XL) 300 mg PO QAM 90 tabs 0RF
[2024-12-26 14:50] VITALS: BP 122/78; PULSE 84; TEMP 36.7; O2SAT 98; BMI 41.4
== END 2024-12-26 15:09 | disposition home or self-care (01) ==
PROVIDERS: PCP Internal Medicine; Visit Provider Internal Medicine
DX: F32.2 Major depressive disorder, single episode, severe without psychotic features (principal); N39.41 Urge incontinence; F41.0 Panic disorder [episodic paroxysmal anxiety]; N93.8 Other specified abnormal uterine and vaginal bleeding; D50.9 Iron deficiency anemia, unspecified

== ENCOUNTER → 2024-12-26 14:48 | Outpatient (BNVA) | payer OTHER, SELFPAY | PROVIDERS: PCP Internal Medicine; Visit Provider Internal Medicine | DX: F32.2 Major depressive disorder, single episode, severe without psychotic features (principal); N39.41 Urge incontinence; F41.0 Panic disorder [episodic paroxysmal anxiety]; N93.8 Other specified abnormal uterine and vaginal bleeding; D50.9 Iron deficiency anemia, unspecified; Z79.899 Other long term (current) drug therapy | CPT/HCPCS: 96127 ==

== ENCOUNTER → 2025-02-20 13:55 | Outpatient (BNVA) | payer OTHER, SELFPAY | PROVIDERS: PCP Internal Medicine; Visit Provider Surgery ==

== ENCOUNTER 2025-03-05 08:10 | Outpatient (AMB) | payer OTHER, SELFPAY ==
--- NOTE | 2025-03-05 11:11 | MHC.OFFVISWM ---
VS Expanded 03/05/25 11:44 Height 5 ft 4 in Weight 233 lb 9 oz BMI 40.1 Body Fat % 45.1 Body Fat Mass 105.4 Fat Free Mass 128 Visceral Fat Rating 11 Body Water Mass 92 Basal Metabolic Rate/Score 1,840 Intake Visit Reasons: [facility] Allergies No Known Allergies Allergy (Verified 03/05/25 11:11) Medication List - Last Reconciled 03/05/25 by Markie Stewart MD bupropion HCl XL (Wellbutrin XL) 300 mg PO QAM cholecalciferol (vitamin D3) 25 mcg PO DAILY 90 days ferrous sulfate 324 mg PO .qd 90 days lorazepam 0.5 mg PO BEDTIME PRN HPI HPI [facility]: Details: Start time: 11.04am, End time: 11.54am I spent 45 minutes speaking with the patient on the phone plus an additional 5 minutes reviewing and updating records for a total of 50 minutes HPI Comments Details: Previous weight loss efforts: exercise Wakes up: 8am, Sleeps: 1am Breakfast: skips Lunch: 1.30pm (salmon, salads) Dinner: 8pm (salmon, rice, broccoli) Snacks: none Exercise: Has home treadmill Beverages: Mariza Coffee x3/wk, tea: none, soda: regular Sprite (x2/wk), juice: none, ETOH: 2/wk Tequila 4-5/day PFSH Medical History (Updated 03/05/25 @ 11:14 by Markie Stewart MD) GERD (gastroesophageal reflux disease) Depression Family History (Updated 02/20/25 @ 14:08 by KOKO Goddard) Sister Cervical cancer HTN (hypertension) Mother Diabetes Father Diabetes HTN (hypertension) Social History Housing: House Patient Tobacco Use Status: Never used Tobacco e-Cigarette/Vaping Use: Currently Using service: No Cognitive needs: No Hearing needs: No Vision needs: Yes Telehealth Telehealth Telehealth Platform: Telephone Location of provider rendering services: practice address Location of patient: address on file Patient Identification confirmed using: Name, : Yes Telehealth method: voice only Patient verbally consented to treatment: Yes Patient verbally consented to billing insurance company: Yes Patient informed of any privacy concerns related to visit: Yes Minutes spent on Phone/Video with Pt.: 50 Assessment & Plan Assessment & Plan (1) Morbid obesity due to excess calories: Code(s): E66.01 - Morbid (severe) obesity due to excess calories Category: Medical Plan: 1. We discussed in detail the available therapeutic options: 1) her insurance requires participation in our lifestyle intervention program for 6 months before use of anti-obesity medications is considered. We discussed about the use of our [employer] software dariana for the meal and exercise plan. 2) We also discussed about the lap sleeve gastrectomy. I emphasized the importance of close follow-up, adherence to instructions and good communication. The surgery does not replace the need to change your lifestlyle which is the cause of the obesity problem. The surgery provides the motivation to try again to change your lifestyle, it reduces the appetite and make the transition to a better lifestyle easier and doubles the amount of weight you would lose compared to doing the lifestyle change without the surgery. You will need to be on a liquid diet with protein shakes for 2 weeks before surgery to maximize weight loss and boost your nutritional status to recover better from surgery and also for the first two weeks after surgery to let the stomach heal before we introduce other foods. After the first 2 weeks we will introduce protein bars and soft foods like scrambled eggs, cottage cheese and yogurt and after the 6th week will introduce meat, fish and cooked vegetables in small amounts. Over time you should be able to eat everything in small amounts. Side effects like nausea, vomiting, heartburn or abdominal pain are not common in the practice unless you are not following in the practice. This operation requires lifetime commitment to following in our practice and communication with me. You will much less weight and experience side effects if you don?t communicate or not following in the practice. Complications are rare and in our practice is about 1/10 of the national average. The patient will consider these options and get back to me with her decision how she would like to proceed.
[2025-03-05 11:44] VITALS: BMI 40.1
== END 2025-03-05 11:55 | disposition home or self-care (01) ==
PROVIDERS: PCP Internal Medicine; Visit Provider Surgery
DX: E66.01 Morbid (severe) obesity due to excess calories (principal); E66.813 Obesity, class 3; Z68.41 Body mass index [BMI] 40.0-44.9, adult
CPT/HCPCS: 98011

== ENCOUNTER → 2025-03-05 08:10 | Outpatient (BNVA) | payer OTHER, SELFPAY | PROVIDERS: PCP Internal Medicine; Visit Provider Surgery ==

== ENCOUNTER 2025-03-12 | Outpatient (REF) | payer OTHER, SELFPAY ==
--- NOTE | ~2025-03-12 | XR_ITS ---
EXAMINATION: XR CHEST CLINICAL INFORMATION: E66.01 - Morbid (severe) obesity due to excess calories COMPARISON: None available. TECHNIQUE: 2 views of the chest were obtained. FINDINGS: No consolidation, pleural effusion or pneumothorax. No hyperinflation. Cardiomediastinal silhouette size is normal. Multilevel thoracic stenosis. Mild S-shaped curvature of the thoracic spine. Patient's large body habitus/obesity. XR/XR chest 2V IMPRESSION: No acute airspace disease. Electronically signed by: Cipriano Palacios MD 03/12/2025 02:41 PM EDT
--- NOTE | 2025-03-12 14:40 | ECG_ITS ---
Test Reason : MOR OBS Blood Pressure : */* mmHG Vent. Rate : 58 BPM Atrial Rate : 58 BPM P-R Int : 160 ms QRS Dur : 94 ms QT Int : 438 ms P-R-T Axes : 7 -11 5 degrees QTcB Int : 429 ms Sinus bradycardia Minimal voltage criteria for LVH, may be normal variant ( R in aVL ) Borderline ECG When compared with ECG of 09-Jan-2014 15:07, Aberrant conduction is no longer Present Referred By: Markie Stewart Electronically Signed By: WENDY MATTHEWS
[2025-03-12 15:16] LABS: MANUAL DIFF FLAG NO
[2025-03-12 17:12] LABS: Basophils Percent Auto 0.3 % (0-2); Eosinophils Absolute Auto 0.2 X10*3/uL (0.0-0.4); Eosinophils Percent Auto 1.5 % (0-4); Hematocrit 34.9 % (37.0-47.0); Hemoglobin 11.1 g/dl (12.0-16.0); Imm Gran Abs Auto 0.04 X10*3/uL (0.00-0.03); Imm Gran Pct Auto 0.4 % (0.0-0.4); Lymphocytes Percent Auto 28.1 % (20-40); Mean Corpuscular HGB Conc 31.8 g/dl (31.0-35.0); Mean Corpuscular Hemoglobin 24.4 pg (27.0-33.0); Mean Corpuscular Volume 76.9 fL (80.0-98.0); Mean Platelet Volume 11.8 fL (9.4-12.3); Monocytes Absolute Auto 0.8 X10*3/uL (0.1-1.2); Monocytes Percent Auto 7.5 % (2-11); Neutrophils Absolute Auto 6.7 x10*3/uL (2.0-8.3); Neutrophils Percent Auto 62.2 % (45-73); Platelet Count 360 X10*3/uL (160-400); Red Blood Count 4.54 X10*6/uL (4.20-5.50); Red Cell Distribution Width 15.4 % (11.0-16.0); White Blood Count 10.7 X10*3/uL (4.8-10.8)
[2025-03-12 17:18] LABS: Estimated Average Glucose 114 mg/dL; Hemoglobin A1c % 5.6 % (<6.0)
[2025-03-12 18:08] LABS: Alanine Aminotransferase 15 U/L (0-31); Albumin Level 4.5 g/dL (3.5-5.0); Alkaline Phosphatase 74 U/L (39-117); Anion Gap 13 (12-20); Aspartate Amino Transferase 18 U/L (5-31); Bilirubin Total 0.5 mg/dL (0.0-1.0); Blood Urea Nitrogen 12 mg/dL (9-16); C Reactive Protein 2.24 mg/dL (< or = 0.50); Calcium 9.3 mg/dL (8.4-10.2); Carbon Dioxide 24 mmol/L (22-29); Chloride 109 mmol/L (96-108); Cholesterol 108 mg/dL (<200); Estimated Glomerular Filt Rate > 60; Ferritin 17 ng/mL (10-122); Glucose Random 83 mg/dL (60-115); Insulin 10 uU/mL (2-29); Iron 36 mcg/dL (30-160); Percent Iron Saturation 10 % (15-50); Potassium 4.2 mmol/L (3.3-5.1); Sodium 142 mmol/L (135-145); TSH reflex Free T4 1.29 uIU/mL (0.32-4.0); Total Iron Binding Capacity 344 mcg/dL (228-428); Total Protein 7.4 g/dL (6.5-8.0); Triglycerides 112 mg/dL (<150); Unsaturated Iron Binding 308 ug/dL; Vitamin D 25-OH Total 16.1 ng/mL (>30)
[2025-03-12 18:15] LABS: Folate 5.6 ng/mL (> or = 4.0); Vitamin B12 315 pg/mL (200-900)
[2025-03-12 18:30] LABS: HDL Cholesterol 27 mg/dL (>40); LDL Cholesterol Calculated 59 mg/dL (<100)
[2025-03-14 20:34] LABS: Zinc 77 mcg/dL (60-130)
[2025-03-16 16:38] LABS: Vitamin B1 10 nmol/L (8-30)
[2025-03-17 01:44] LABS: Vitamin A 36 mcg/dL (38-98)
== END 2025-03-12 00:01 | disposition home or self-care (01) ==
LOC: HO.XRAY
PROVIDERS: PCP Internal Medicine; Visit Provider Surgery
DX: E66.01 Morbid (severe) obesity due to excess calories (principal); K21.9 Gastro-esophageal reflux disease without esophagitis; R03.0 Elevated blood-pressure reading, without diagnosis of hypertension; Z13.1 Encounter for screening for diabetes mellitus; R00.1 Bradycardia, unspecified
CPT/HCPCS: 36415; 71046; 80053; 80061; 82306; 82607; 82728; 82746; 83036; 83525; 83540; 84425; 84443; 84590; 84630; 85025; 86140; 93005

== ENCOUNTER → 2025-03-12 14:17 | Outpatient (BNV) | payer OTHER, SELFPAY | PROVIDERS: PCP Internal Medicine; Visit Provider Radiology Diagnostic Radiology | DX: E66.01 Morbid (severe) obesity due to excess calories (principal) | CPT/HCPCS: 71046 ==

== ENCOUNTER → 2025-03-12 14:40 | Outpatient (BNV) | payer OTHER, SELFPAY | PROVIDERS: PCP Internal Medicine; Visit Provider Internal Medicine | DX: R00.1 Bradycardia, unspecified (principal) | CPT/HCPCS: 93010 ==

== ENCOUNTER 2025-03-29 08:31 | Outpatient (AMB) | payer OTHER, SELFPAY ==
--- NOTE | 2025-03-29 08:31 | A.OFFPC_ITS ---
Intake Visit Reasons: 3 months f/up Allergies No Known Allergies Allergy (Verified 03/29/25 08:34) Medication List - Last Reconciled 03/29/25 by Yumiko Falk MD bupropion HCl XL (Wellbutrin XL) 300 mg PO QAM cholecalciferol (vitamin D3) 25 mcg PO DAILY 90 days cholecalciferol (vitamin D3) 125 mcg PO DAILY ferrous sulfate 324 mg PO .qd 90 days iron,carbonyl-vitamin C 65 mg iron- 125 mg (Vitron-C) 1 tab PO DAILY lorazepam 0.5 mg PO BEDTIME PRN mecobalamin (vitamin B12) 1,000 mcg sublingual DAILY vitamin A palmitate 3,000 mcg PO DAILY Tobacco use date assessed: 03/29/25 Dental Screening Dental Screen Date: 03/29/25 Did you have a dental visit in the last 12 months?: Yes Did you have a dental problem in the last 6 months where you did not have access to dental care?: No Was dental information given to patient?: Patient has dentist HPI 3 months f/up HPI Details History - The patient is a 29-year-old female pr esenting with anxiety and constipation. - Anxiety: Patient reports ongoing anxie ty, primarily in the evenings, managed with lorazepam, which has decreased in efficacy over time. Has not tried buspirone before. - Depression: Previously diagnosed major depressive disorder is currently managed with bupropion 300 mg, reported as effective with good control over depressive symptoms. - Anemia: Diagnosis of iron-deficiency a nemia persists, with hemoglobin levels having decreased from 11.7 in September to 11.1 currently. Anemia is attributed to heavy and prolonged menstrual cycles. Patient is compliant with iron supplementation. - Constipation: Described as experiencin g constipation, likely secondary to iron supplementation. Bowel movements occur approximately once a week, described as difficult. - Vitamin D Deficiency: Continues to be present as per recent lab results. Adan vergara is on vitamin supplementation under care of a weight sr. director product management. - Menorrhagia: Long-standing history of heavy and prolonged menstrual periods contributing to anemia. Patient acknowledges a delay in OBGYN follow-up due to several rescheduled appointments. Problem List - Anxiety - Major Depressive Disorder - Iron-Deficiency Anemia - Constipation secondary to iron supplem entation - Vitamin D Deficiency - Menorrhagia Patient Instructions - Start buspirone up to three times a da y as needed for anxiety, particularly advised to take in the evening. - Continue taking iron supplements daily ; monitor for constipation. - Utilize Senna with stool softener as n eeded for constipation, starting with one or two tablets at night. - Continue taking current vitamin supple ments as prescribed. - OBGYN appointment to be rescheduled to a more accessible location for evaluation of menorrhagia and ongoing anemia issues. Review of Systems - General: No fever no chills - Neurological: No headaches no dizziness - Ear nose throat: No sore throat no hearing difficulty no ear pain - Cardiovascular: No syncope, no chest pain, no palpitations - Gastrointestinal: No nausea vomiting or diarrhea - Endocrine: No polyuria polydipsia no heat intolerance - Genitourinary: No dysuria , no blood in urine PFSH Medical History GERD (gastroesophageal reflux disease) Depression Family History Sister Cervical cancer HTN (hypertension) Mother Diabetes Father Diabetes HTN (hypertension) Social History Housing: House Patient Tobacco Use Status: Never used Tobacco e-Cigarette/Vaping Use: Currently Using service: No Cognitive needs: No Hearing needs: No Vision needs: Yes Questionnaire Thrive Questionnaire Date Thrive assessed: 12/26/24 AUDIT C Alcohol Use Questionnaire (AUDIT-C) 1. How often do you have a drink containing alcohol?: 2-3 times a week 2. How many drinks containing alcohol do you have on a typical day when you are drinking?: 3 or 4 3. How often do you have six or more drinks on one occasion?: Weekly Total Score: 7 Score Reviewed/Action Taken: Yes DANIELE-7 AMB Questionnaire DANIELE-7 Date DANIELE - 7 assessed: 12/26/24 Source: Developed by Drs. Helio Matute, Celina Monge, Nasim Charles and colleagues, with an educational johnson from [employer]. Physical exam (Primary Care) Tobacco/Smoking Status: Tobacco use Status Tobacco use date assessed 03/29/25 03/29/25 08:35 Patient Tobacco Use Status Never used Tobacco 03/29/25 08:31 e-Cigarette/Vaping Use Currently Using 03/29/25 08:31 Thrive Assessment: Date of Thrive Assessment Date Thrive assessed 12/26/24 03/29/25 08:31 Telehealth Telehealth Telehealth Platform: [employer] Location of provider rendering services: practice address Location of patient: address on file Patient Identification confirmed using: Name, : Yes Telehealth method: video (Attempted) Patient verbally consented to treatment: Yes Patient verbally consented to billing insurance company: Yes Patient informed of any privacy concerns related to visit: Yes Minutes spent on Phone/Video with Pt.: 13 Coding Level of Care Code Tele Est Pt Level 3 (39803) Diagnoses Dysfunctional uterine bleeding N93.8 Major depressive disorder, severe F32.2 Urge incontinence of urine N39.41 Panic anxiety syndrome F41.0 Microcytic anemia D50.9 Assessment & Plan Assessment & Plan (1) Dysfunctional uterine bleeding: Code(s): N93.8 - Other specified abnormal uterine and vaginal bleeding Category: Medical (2) Major depressive disorder, severe: Code(s): F32.2 - Major depressive disorder, single episode, severe without psychotic features Category: Medical (3) Urge incontinence of urine: Code(s): N39.41 - Urge incontinence Category: Medical (4) Panic anxiety syndrome: Code(s): F41.0 - Panic disorder [episodic paroxysmal anxiety] Category: Medical (5) Microcytic anemia: Code(s): D50.9 - Iron deficiency anemia, unspecified Category: Medical Plan History - The patient is a 29-year-old female presenting with anxiety and constipation. - Anxiety: Patient reports ongoing anxiety, primarily in the evenings, managed with lorazepam, which has decreased in efficacy over time. Has not tried buspirone before. - Depression: Previously diagnosed major depressive disorder is currently managed with bupropion 300 mg, reported as effective with good control over depressive symptoms. - Anemia: Diagnosis of iron-deficiency anemia persists, with hemoglobin levels having decreased from 11.7 in September to 11.1 currently. Anemia is attributed to heavy and prolonged menstrual cycles. Patient is compliant with iron supplementation. - Constipation: Described as experiencing constipation, likely secondary to iron supplementation. Bowel movements occur approximately once a week, described as difficult. - Vitamin D Deficiency: Continues to be present as per recent lab results. Patient is on vitamin supplementation under care of a weight sr. director product management. - Menorrhagia: Long-standing history of heavy and prolonged menstrual periods contributing to anemia. Patient acknowledges a delay in OBGYN follow-up due to several rescheduled appointments. Problem List - Anxiety - Major Depressive Disorder - Iron-Deficiency Anemia - Constipation secondary to iron supplementation - Vitamin D Deficiency - Menorrhagia Patient Instructions - Start buspirone up to three times a day as needed for anxiety, particularly advised to take in the evening. - Continue taking iron supplements daily; monitor for constipation. - Utilize Senna with stool softener as needed for constipation, starting with one or two tablets at night. - Continue taking current vitamin supplements as prescribed. - OBGYN appointment to be rescheduled to a more accessible location for evaluation of menorrhagia and ongoing anemia issues. Orders: Referrals BELTING AND WEBBING INSPECTOR Referral N93.8 - Other specified abnormal uterine and vaginal bleeding Medications: New buspirone 10 mg PO BID PRN 30 tabs 0RF anxiety Discontinued lorazepam Discontinued Reason: Doctor's Order 0.5 mg PO BEDTIME PRN 30 tabs 0RF anxiety
== END 2025-03-29 10:21 | disposition home or self-care (01) ==
LOC: HO.HMCC 08:31
PROVIDERS: PCP Internal Medicine; Visit Provider Internal Medicine
DX: D50.9 Iron deficiency anemia, unspecified (principal); N93.8 Other specified abnormal uterine and vaginal bleeding; F32.2 Major depressive disorder, single episode, severe without psychotic features; N39.41 Urge incontinence; F41.0 Panic disorder [episodic paroxysmal anxiety]

== ENCOUNTER → 2025-03-29 08:31 | Outpatient (BNVA) | payer OTHER, SELFPAY | PROVIDERS: PCP Internal Medicine; Visit Provider Internal Medicine | DX: Z13.89 Encounter for screening for other disorder (principal) ==

== ENCOUNTER 2025-04-04 08:17 | Outpatient (AMB) | payer OTHER, SELFPAY ==
--- NOTE | 2025-04-04 08:05 | A.OFFWM_ITS ---
Intake Intake Visit Reasons: TV BH Intake Allergies No Known Allergies Allergy (Verified 03/29/25 08:34) [facility] Medical History GERD (gastroesophageal reflux disease) Depression Family History Sister Cervical cancer HTN (hypertension) Mother Diabetes Father Diabetes HTN (hypertension) Social History Housing: House Patient Tobacco Use Status: Never used Tobacco e-Cigarette/Vaping Use: Currently Using service: No Cognitive needs: No Hearing needs: No Vision needs: Yes Behavioral Health Assessment Weight Management Therapy Therapy Notes Details The patient is a 29-year-old female presenting for an initial visit to begin a behavioral health assessment as part of the surgical weight loss program. She was initially referred by her primary care provider (PCP). At the time, the patient was uncertain about pursuing surgical options but has since decided to explore weight-loss surgery more seriously. The patient expresses a strong desire to improve her overall health, lose weight, and maintain a healthy long- term weight goal. PT reports sheis diagnosed with panic disorder and major depressive disorder by her PCP over the past year. She is currently prescribed Lorazepam, Wellbutrin XL, and recently Buspirone (not yet started). She reports daily anxiety and a history of panic attacks, with the last full episode occurring about a year ago. Depressive episodes occur a few times annually, lasting 7?15 days, marked by isolation, feeling down and sad, overeating, forgetfulness, and passive thoughts, though she denies any suicidal ideation, attempts, or self-harm. She has no prior counseling experience or history of psychiatric hospitalization. Presenting Concerns Referral Source WMP-Provider. Reason for referral Completion of behavioral health assessment as part of process for weight-loss surgery. Precipitating Event Obesity. Living Situation Current Living Situation Own and Relative's/Guardian's Niranjan At risk of losing current housing? No Satisfied with current living situation? Yes Comments PT lives at her parents home. It is a multifamily home. Parents are in the first floor, she's in the second and her sister with her mephew are in the 3rd floor. Food/Weight/Diet History/Relationship with dieting Gym membership on and off. Caloric deficit diet - 2022. Social History Family history and relationship PT is single. She lives alone but in a multifamily home her parents own, she is in the second floor. Her parents are alive, and she has 2 sisters. PT reports she has a good family relationship. Parental/Familial pool finisher obligations None. Developmental history and status PT had an IEP in elementary school due to attention issues. Currently WNL. Social support Parents, sister. 2 close friends. Community support None. Lutheran/Spirituality Grew up as a Latter-Day but she doesn't practice. Cultural/Ethnic information Parents are from [place]. Legal Involvement and History Current or historical involvement with the legal system? None reported. Education Highest grade completed HS. 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 Preferred learning style Learn by doing Currently enrolled in educational program? No Interested in further educational program? 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 Family activities. Financial Situation Describe current financial situation Comfortable Financial assistance? None Service Service? No Mental Health and Addiction Treatment Current/Past substance abuse? No Comments Alcohol: weekly. 4-5 mixed drinks (tequila and cranberry) Cigarettes/Tobacco: None, but does vaping with a % of nicotine. Uses mostly during the weekend. Cannabis/Edibles: None. Current/Past addictive behavior concerns? No Psychiatric history The patient reports that over the past year, she began working with her primary care provider (PCP) to address mental health concerns. She has since been diagnosed with Panic Disorder and Major Depressive Disorder. Current Medications: -Lorazepam 0.5 mg ? 1 tablet at bedtime, for anxiety/panic symptoms. -Wellbutrin XL 300 mg ? 1 tablet each mo rning, for moderate depression and anxiety. -Buspirone 10 mg ? Recently prescribed; the patient has not yet started this medication. The patient experiences daily anxiety and reports feeling on edge throughout the day. She has a history of panic attacks, characterized by heavy breathing, chest tightness, crying, and temporary immobility. These episodes have been largely controlled with medication, and the last full panic attack occurred approximately one year ago. When experiencing depressive episodes, the patient tends to isolate, spend extensive time in her bedroom, and limit her activities to only essential tasks. During these times, she reports overeating, increased forgetfulness, and making mistakes at work. She has experienced passive thoughts questioning the value of life but denies any suicidal ideation (SI), suicide attempts (SA), or history of self-harm. Depressive episodes previously occurred a few times per year, typically lasting 7 to 15 days. The patient has never engaged in counseling or therapy and has no history of psychiatric hospitalization or mental health crises. Questionnaires PHQ-9 Over the last 2 weeks, how often have you been bothered by any of the following problems? 1. Little interest or pleasure in doing things: more than half the days 2. Feeling down, depressed, or hopeless: more than half the days 3. Trouble falling or staying asleep, or sleeping too much: more than half the days 4. Feeling tired or having little energy: more than half the days 5. Poor appetite or overeating: more than half the days 6. Feeling bad about yourself - or that you are a failure or have let yourself or your family down: several days 7. Trouble concentrating on things, such as reading the newspaper or watching television: more than half the days 8. Moving or speaking so slowly that other people could have noticed. Or the opposite - being so fidgety or restless that you have been moving around a lot more than usual: more than half the days 9. Thoughts that you would be better off or of hurting yourself in some way: not at all Total score: 15 Depression Screening Interpretation: Positive (From new Pt pack scanned on 03/13/25) Depression Screening Done: Yes Source: Developed by Drs. Helio Matute, Celina Monge, Nasim Charles and colleagues, with an educational johnson from [employer]. Assessment & Plan Assessment & Plan (1) Depression: Code(s): F32.A - Depression, unspecified Qualifiers: Depression Type: major depressive disorder Major depression recurrence: recurrent Major depression episode severity: moderate (2) Panic anxiety syndrome: Code(s): F41.0 - Panic disorder [episodic paroxysmal anxiety] (3) Pre-bariatric surgery psychological evaluation: Code(s): Z71.89 - Other specified counseling Plan PT not yet cleared, as the assessment is still in progress and will return in 2?3 weeks to continue the evaluation. Next Appointment: 04/25/2025 at 12:00 PM (Video Visit). Telehealth Telehealth Telehealth Platform: [employer] Location of provider rendering services: other Location of patient: address on file Patient Identification confirmed using: Name, : Yes Telehealth method: video Patient verbally consented to treatment: Yes Patient verbally consented to billing insurance company: Yes Patient informed of any privacy concerns related to visit: Yes Minutes spent on Phone/Video with Pt.: 60 Coding Level of Care Code New Pt Tele Psy Diag Eval (21967) Patient Type New Diagnoses Depression F32.A Depression Type: major depressive disorder Major depression recurrence: recurrent Major depression episode severity: moderate Panic anxiety syndrome F41.0 Pre-bariatric surgery psychological evaluation Z71.89 Time Spent (min) 60
== END 2025-04-04 09:03 | disposition home or self-care (01) ==
LOC: HO.HBST 08:17
PROVIDERS: PCP Internal Medicine; Visit Provider Counselor Mental Health
DX: F32.A Depression, unspecified (principal); F41.0 Panic disorder [episodic paroxysmal anxiety]; Z71.89 Other specified counseling
CPT/HCPCS: 90791

== ENCOUNTER → 2025-04-04 08:17 | Outpatient (BNVA) | payer OTHER, SELFPAY | PROVIDERS: PCP Internal Medicine; Visit Provider Counselor Mental Health ==

== ENCOUNTER 2025-04-18 09:25 | Day surgery (SDC) | payer OTHER, SELFPAY ==
[2025-04-16 12:37] VITALS: BMI 40.1
--- NOTE | 2025-04-16 12:37 | HO.ANESPROP2 ---
Documented by User: Denise Arredondo NP 04/16/25 12:40 HPI - Anesthesia Eval Consult details Narrative: 29yo F for Upper Endoscopy PMFSH Active Problems Active Problems: All Active Problems Vitamin A deficiency (Acute) Vitamin B12 deficiency (Acute) Anemia (Acute) Vitamin D deficiency (Acute) Encounter for routine gynecological examination (Acute) Microcytic anemia (Acute) Anxiety, generalized (Acute) Dysfunctional uterine bleeding (Acute) Prehypertension (Acute) Snoring (Acute) Chronic nausea (Acute) Panic anxiety syndrome (Acute) Major depressive disorder, severe (Acute) Urge incontinence of urine (Acute) Morbid obesity due to excess calories (Acute) Encounter for general adult medical examination with abnormal findings (Acute) GERD (gastroesophageal reflux disease) (Acute) Depression (Acute) Past Medical History Medical History Anxiety Anemia GERD (gastroesophageal reflux disease) Depression Family History Family History Sister Cervical cancer HTN (hypertension) Mother Diabetes Father Diabetes HTN (hypertension) Social History Social History Housing: House Patient Tobacco Use Status: Current everyday Tobacco user e-Cigarette/Vaping Use: Currently Using Use of substances other than those prescribed or required for medical reasons: Yes Are you DNR?: No Advance Directives: No Advance Directives Information Provided: Yes : No Poor oral hygiene: No service: No Cognitive needs: No Hearing needs: No Vision needs: Yes Meds Allergies Allergy/AdvReac Type Severity Reaction Status Date / Time No Known Allergies Allergy Verified 03/29/25 08:34 Assessment and Plan Assessment Anesthesia Assessment: Chart Reviewed Documented by User: Macrina Mehta MD 04/18/25 10:20 PMFSH Past Medical History Medical History Anxiety Anemia GERD (gastroesophageal reflux disease) Depression Functional capacity: bed bound Family History Family History Sister Cervical cancer HTN (hypertension) Mother Diabetes Father Diabetes HTN (hypertension) Surgical History History of Problems with Anesthesia: No Social History Social History Housing: House Patient Tobacco Use Status: Current everyday Tobacco user e-Cigarette/Vaping Use: Currently Using Use of substances other than those prescribed or required for medical reasons: Yes Are you DNR?: No Advance Directives: No Advance Directives Information Provided: Yes : No Poor oral hygiene: No service: No Cognitive needs: No Hearing needs: No Vision needs: Yes Meds Allergies Allergy/AdvReac Type Severity Reaction Status Date / Time No Known Allergies Allergy Verified 03/29/25 08:34 Exam Airway Mallampati Class: II TM Dist: >3cm Neck ROM: Full Loose/Missing/Broken Teeth: No Heart: RRR Lungs: CTA Assessment and Plan Assessment Anesthesia Assessment: Anesthesia Plan Discussed Final Anesthetic Review History of Problems with Anesthesia: No NPO: Yes ASA Class: II Final Preanesthetic Review: Meds/Allgs Chart Reviewed, Consent Obtained/Reviewed and Anes Risks/Benef Reviewed Patient Risk: Low Procedure Risk: Intermediate Anesthetic Plan Anesthetic Plan: MAC: Disposition: Standard PACU
[2025-04-18 09:50] VITALS: BMI 38.1
[2025-04-18 10:01] VITALS: BP 103/63; PULSE 74; RESP 16; TEMP 36.4; O2SAT 99
[2025-04-18 10:01] LABS: UPreg QC Valid YES; Urine Pregnancy NEGATIVE (NEGATIVE)
[2025-04-18] MEDS: Lactated Ringers 1,000 ML 80 ML IVCONT (10:13)
--- NOTE | 2025-04-18 10:17 | MHC.SHP ---
Pre-Procedural Eval Section A - 24 Hr Update-Section A only Date of Service: 04/18/25 The patient is an INPATIENT: No The patient has been examined within 24 hours of the surgical procedure. The History & Physical has been completed within 30 days and I have reviewed it.: Yes Section B - Complete if H&P > 30 days Chief Complaint: Morbid (severe) obesity due to excess calories Details of Present Illness: GERD Relevant Family History (Specify if Yes): No Relevant Social History: None Present Medications: None Medical History: No relevant PMH History of Previous Operations: No relevant previous surgery Allergies: Allergies Allergy/AdvReac Type Severity Reaction Status Date / Time No Known Allergies Allergy Verified 03/29/25 08:34 Review of Systems Sugical H&P ROS: Negative: Constitution, Cardiovascular, Respiratory, Neurological, Psychiatric, Hem-Onc, Allergic/Immunologic, Gastrointestinal, Genitourinary, Musculoskeletal, Integumentary, Endocrine and Eyes/Ears/Nose/Throat Exam Surgical H&P Exam: Normal: HEENT, Normal: Heart, Normal: Lungs, Normal: Extremities, Normal: Abdomen, Normal: Skin and Normal: Neurological Plan Diagnosis/Plan: Unchanged (EGD to assess etiology of GERD. Risks of bleeding and perforation were discussed with the patient and she is in agreement with the plan.) I have reviewed the history and physical and performed a pertinent physical examination on my patient. No changes have occurred unless specified. Time Spent With Patient Time: Total time managing care of this patient today ____ minutes.
--- NOTE | 2025-04-18 10:20 | PM.OP ---
Brief Operative Note Date of Service: 04/18/25 Pre-op diagnosis: GERD Post-op diagnosis: same Procedure: PROCEDURE DATE: 04/18/2025 PREOPERATIVE DIAGNOSIS: GERD POSTOPERATIVE DIAGNOSIS: ?Same as above. Normal endoscopy PROCEDURE: [id number] with biopsies Surgeon: Teodoro Stewart M.D.. Ph.D. Slitter Helper: None ? Anesthesia: IV sedation Estimated blood loss: ?Minimal FINDINGS AND PROCEDURE: ? OPERATIVE INDICATIONS: ?The patient is a 29 year old female known to me who is interested in bariatric surgery. The patient has GERD. Based on this information I recommended an upper endoscopy to evaluate the patient's symptoms. Risks and complications of the surgery were discussed with the patient in advance particularly the possibility of perforation or bleeding that may require surgical intervention. The patient understood the risks and was in agreement with the plan. ? PROCEDURE: After informed consent was obtained by the patient, the patient was ?transferred to the Operating Room and was placed in the supine position.? After successful induction of IV sedation, a mouth block was inserted and the patient was placed in the left lateral decubitus position. An upper endoscopy was performed next, the oropharynx and esophagus appeared within the normal limits. There was no hiatal hernia. The z-line was smooth. Two biopsies were obtained from the distal esophagus 2-3 cm proximal to the GE junction and two additional biopsies from the GE junction. The stomach was entered and it appeared to be of normal size. There was no gastritis. There was no stricture or ulcer. A biopsy was obtained from the gastric fundus and the antrum. No significant bleeding was noted from any of the biopsy sites. Retroflexion of the scope confirmed a normal GE junction. The scope was then advanced into the duodenum which appeared to be normal as well. At that point the duodenum ?and the stomach were decompressed and the scope was withdrawn from the patient's mouth. The patient extubated and was transferred in stable condition to the Recovery Room for further care. I was present and performed all steps of the procedure. There were no residents to assist with this case. Sanket Stewart M.D., Ph.D. Surgeon: Markie Stewart MD Anesthesia: MAC Was an Slitter Helper used for this Procedure?: No Estimated blood loss (mL): 0 IV fluids (mL): 400 Urine output (mL): 0 (No Grimes to record output) Pathology: other (1) antrum x1, 2) fundus x1, 3) GE junction x2, 4) distal esophagus x2) Condition: stable Disposition: PACU
[2025-04-18 10:35] VITALS: BP 96/56; PULSE 79; RESP 18; TEMP 36.1; O2SAT 100
[2025-04-18 10:50] VITALS: BP 103/62; PULSE 82; RESP 12; TEMP 36.1; O2SAT 96
== END 2025-04-18 11:46 | disposition home or self-care (01) ==
PROVIDERS: Nurse Practitioner; PCP Internal Medicine; Visit Provider Surgery
PROC: 0DJ08ZZ Inspection of Upper Intestinal Tract, Via Natural or Artificial Opening Endoscopic (ICD-10-PCS; CPT 43235; principal; 2025-04-18 11:30)
DX: K21.9 Gastro-esophageal reflux disease without esophagitis (principal); E66.01 Morbid (severe) obesity due to excess calories; Z68.41 Body mass index [BMI] 40.0-44.9, adult; D64.9 Anemia, unspecified; F32.A Depression, unspecified; F41.9 Anxiety disorder, unspecified; Z79.899 Other long term (current) drug therapy; F17.290 Nicotine dependence, other tobacco product, uncomplicated
CPT/HCPCS: 43239; 81025; 88305; 88342

== ENCOUNTER → 2025-04-18 09:25 | Outpatient (BNV) | payer OTHER, SELFPAY | PROVIDERS: PCP Internal Medicine; Visit Provider Surgery | DX: K21.9 Gastro-esophageal reflux disease without esophagitis (principal) | CPT/HCPCS: 43239 ==

== ENCOUNTER 2025-04-25 12:19 | Outpatient (AMB) | payer OTHER, SELFPAY ==
--- NOTE | 2025-04-25 12:05 | A.OFFWM_ITS ---
Intake Intake Visit Reasons: VIDEO Intake Part 2 Allergies No Known Allergies Allergy (Verified 03/29/25 08:34) [facility] Medical History Anxiety Anemia GERD (gastroesophageal reflux disease) Depression Family History Sister Cervical cancer HTN (hypertension) Mother Diabetes Father Diabetes HTN (hypertension) Social History Housing: House Patient Tobacco Use Status: Current everyday Tobacco user e-Cigarette/Vaping Use: Currently Using service: No Cognitive needs: No Hearing needs: No Vision needs: Yes Behavioral Health Assessment Weight Management Therapy Therapy Notes Details The patient is a 29-year-old female presenting for a second visit to complete a behavioral health assessment as part of the surgical weight loss program. She was initially referred by her primary care provider (PCP). At the time of referral, the patient was uncertain about pursuing surgery, but she has since expressed increased interest and is now seriously considering weight-loss surgery. She reports a strong motivation to improve her overall health, achieve weight loss, and maintain long-term healthy lifestyle changes. The patient reports being diagnosed with panic disorder and major depressive disorder by her PCP within the past year. She is currently prescribed Lorazepam, Wellbutrin XL, and was recently prescribed Buspirone, which she has not yet st arted. She experiences daily anxiety and has a history of panic attacks, with the most recent full episode occurring approximately one year ago. She describes depressive episodes a few times per year, typically lasting 7?15 days, characterized by social withdrawal, low mood, overeating, forgetfulness, and passive negative thoughts. However, she denies suicidal ideation, past suicide attempts, or any history of self-harm. She has no prior experience with counseling or psychiatric hospitalization. Although she scored high on the Binge Eating Scale (BES), she does not endorse patterns of emotional or stress-related eating. Her current PHQ-9 score indicates no active depressive symptoms. Additionally, her mental status exam was within normal limits, suggesting that her current mental health status does not impair her functioning. Presenting Concerns Referral Source [facility]-Provider. Reason for referral Completion of behavioral health assessment as part of process for weight-loss surgery. Precipitating Event Obesity. Living Situation Current Living Situation Own and Relative's/Guardian's Niranjan At risk of losing current housing? No Satisfied with current living situation? Yes Comments PT lives at her parents home. It is a multifamily home. Parents are in the first floor, she's in the second and her sister with her yung are in the 3rd floor. Food/Weight/Diet Expectations of change PT started the program on 03/05/2025 at 233Lbs, and most recent weight as of yesterday 04/24/2025 was 222Lbs. PT is not sure if she needs to lose certain amount of weight prior to surgery. She doesn't have an specific post-op weight goal, her goals are based on improving her lifestyle, and have a healthy relationship with food. PT is implementing the following Meal plan: Combination of shakes, bars and 1 meal at days. Exercise plan: Treadmill plan given by the Dr. - does it 3-4 days at week, tries to burn 400Cal. scale: Yes. Communication with provider: Wednesdays. History/Relationship with food PT reports that since she started working and making her own money she has been doing take out for all her meals. Growing up in a household, she always did cereal for breakfast, lunch was at [facility] and dinner was home cook Pan[place]ian style (rice, beans, porkchops). Example of meals before starting the program: Breakfast: Skip but will have an energy drink in the morning. Lunch: 1:30pm- take out - [employer] or fast food from the [employer]. Dinner: 8:30pm - take out ([employer], [employer],), occasionally what her mom would cook (rice/beans/pork or chicken). Snacks: multiple before lunch: Doritos, gummies. Or a soda after lunch. Drinks/Liquids: Coffee: none. Tea: none. Soda: 3-4 cans at day. Juice: none. Energy drinks: monsters, Rafiq or Redbull 1 in the morning. History/Relationship with weight PT denies being obese or overweight in childhood. She was a picky eater and had to be on supplements for appetite. She thinks she started gaining weigh quickly in middle school. PT doesn't remember the last time she was under 200Lbs. In the last 10 years, the patient's Lowest weight was 221Lbs and highest around 280Lbs. History/Relationship with dieting Gym membership on and off. Meal prepping. Caloric deficit diet - 2022. Binge Eating Do you frequently eat large amounts of food in short periods of time, not feeling physically hungry? No Do you feel out of control when you eat a large amount of food in a short period of time? Yes Do you eat large amounts of food rapidly and typically alone? No Night Eating Do you wake up at least once during the night to eat? No If you wake up in the night, do you find that it is necessary to eat something in order to fall back asleep? No Do you have little or no appetite in the morning and feel very hungry in the evening, often overeating between dinner and when you go to bed? Yes Social History Family history and relationship PT is single. She lives alone but in a multifamily home her parents own, she is in the second floor. Her parents are alive, and she has 2 sisters. PT reports she has a good family relationship. Parental/Familial lab associate obligations None. Developmental history and status PT had an IEP in elementary school due to attention issues. Currently [facility]. Social support Parents, sister. 2 close friends. Community support None. Jehovah'S Witness/Spirituality Grew up as a Hindu but she doesn't practice. Cultural/Ethnic information Parents are from [place]. Legal Involvement and History Current or historical involvement with the legal system? None reported. Education Highest grade completed HS. 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 Preferred learning style Learn by doing Currently enrolled in educational program? No Interested in further educational program? 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 Family activities. Financial Situation0 Describe current financial situation Comfortable Financial assistance? None Service Service? No Mental Health and Addiction Treatment Current/Past substance abuse? No Comments Alcohol: weekly. 4-5 mixed drinks (tequila and cranberry) Cigarettes/Tobacco: None, but does vaping with a % of nicotine. Uses mostly during the weekend. Cannabis/Edibles: None. Current/Past addictive behavior concerns? No Psychiatric history The patient reports that over the past year, she began working with her primary care provider (PCP) to address mental health concerns. She has since been diagnosed with Panic Disorder and Major Depressive Disorder. Current Medications: -Lorazepam 0.5 mg ? 1 tablet at bedtime, for anxiety/panic symptoms. -Wellbutrin XL 300 mg ? 1 tablet each mo rning, for moderate depression and anxiety. -Buspirone 10 mg ? Recently prescribed; the patient has not yet started this medication. The patient experiences daily anxiety and reports feeling on edge throughout the day. She has a history of panic attacks, characterized by heavy breathing, chest tightness, crying, and temporary immobility. These episodes have been largely controlled with medication, and the last full panic attack occurred approximately one year ago. When experiencing depressive episodes, the patient tends to isolate, spend extensive time in her bedroom, and limit her activities to only essential tasks. During these times, she reports overeating, increased forgetfulness, and making mistakes at work. She has experienced passive thoughts questioning the value of life but denies any suicidal ideation (SI), suicide attempts (SA), or history of self-harm. Depressive episodes previously occurred a few times per year, typically lasting 7 to 15 days. The patient has never engaged in counseling or therapy and has no history of psychiatric hospitalization or mental health crises. Medical and Physical Health Summary Additional Medical History not covered in history None aditional Sexual History concerns None reported Physical exam in the last year? Yes Pain Screening Current pain? No Pain in the last few months? No Medications Is the patient compliant with medications? Yes (But not using the buspirone / the others she does it daily. ) Does the patient have Donnelly Guardian in place? Not applicable Does the patient use complimentary health approaches? No Trauma/Abuse History History of trauma? No Questionnaires PHQ-9 Over the last 2 weeks, how often have you been bothered by any of the following problems? 1. Little interest or pleasure in doing things: several days 2. Feeling down, depressed, or hopeless: several days 3. Trouble falling or staying asleep, or sleeping too much: several days ( Falling or staying asleep) 4. Feeling tired or having little energy: not at all 5. Poor appetite or overeating: not at all 6. Feeling bad about yourself - or that you are a failure or have let yourself or your family down: not at all 7. Trouble concentrating on things, such as reading the newspaper or watching television: not at all 8. Moving or speaking so slowly that other people could have noticed. Or the opposite - being so fidgety or restless that you have been moving around a lot more than usual: not at all 9. Thoughts that you would be better off or of hurting yourself in some way: not at all Total score: 3 Depression Screening Interpretation: Negative Depression Screening Done: Yes 46263 - PHQ-9 Billing: Yes Source: Developed by Drs. Helio Matute, Celina Monge, Nasim Charles and colleagues, with an educational johnson from [employer]. Binge Eating Scale Group 1 A. I don't feel self-conscious about my wt. or body size when I'm with others. B. I feel concerned about how I look to others, but it normally does not make me fell disappointed with myself C. I do get self-conscious about my appearance and wt. which makes me feel disappointed in myself. D. I feel very self-conscious about my wt. and frequently I feel intense shame and disgust for myself. I try to avoid social contacts because of my self- consciousness. Response Group 1: D Group 2 A. I don't have any difficulty eating slowly in the proper manner. B. Although I seem to gobble down foods, I don't end up feeling stuffed because of eating to much. C. At times, I tend to eat quickly and then, I feel uncomfortably full afterwards. D. I have the habit of bolting down my food, without really chewing it. When this happens I usually feel uncomfortably stuffed because I've eaten to much. Response Group 2: C Group 3 A. I feel capable to control my eating urges when I want to. B. I feel like I have failed to control my eating more than the average person. C. I feel utterly helpless when it comes to feeling in control of my eating urges. D. Because I feel so helpless about controlling my eating I have become very desperate about trying to get control. Response Group 3: D Group 4 A. I don't have the habit of eating when I'm bored. B. I sometimes eat when I'm bored, but often I'm able to get busy and get my mind off food. C. I have a regular habit of eating when I'm bored, but occasionally, I can use some other activity to get my mind off eating. D. I have a strong habit of eating when I'm bored. Nothing seems to help me breath the habit. Response Group 4: D Group 5 A. I'm usually physically hungry when I eat something. B. Occasionally, I eat something on impulse even though I really am not hungry. C. I have the regular habit of eating foods, that I might not really enjoy, to satisfy a hungry feeling even though physically, I don't need the food. D. Although I'm not physically hungry, I get a hungry feeling in my mouth that only seems to be satisfied when I eat a food, like sandwich, that fills my mouth. Sometimes, when I eat the food to satisfy my mouth hunger, I then spit the food out so I won't gain weight. Response Group 5: C Group 6 A. I don't feel any guilt or self-hate after I overeat. B. After I overeat, occasionally I feel guilt or self-hate. C. Almost all the time I experience strong guilt or self-hate after I overeat. Response Group 6: B Group 7 A. I don't lose total control of my eating when dieting even after periods when I overeat. B. Sometimes when I eat a forbidden food on a diet, I feel like I blew it and eat even more. C. Frequently, I have the habit of saying to myself, I've blown it now, why not go all the way, when I overeat on a diet. When that happens I eat more. D. I have a regular habit of starting a strict diets for myself but I break the diets by going on an eating binge. My life seems to be either a feast or famine. Response Group 7: D Group 8 A. I rarely eat so much food that I feel uncomfortably stuffed afterwards. B. Usually about once a month, I each such a quantity of food, I end up feeling very stuffed. C. I have regular periods during the month when I eat large amounts of food, either at mealtime or at snacks. D. I eat so much food that I regularly feel quite uncomfortable after eating and sometimes a bit nauseous. Response Group 8: C Group 9 A. My level of calorie intake does not go up very high or go down very low on a regular basis. B. Sometimes after I overeat, I will try to reduce my caloric intake to almost nothing to compensate for the excess calories I've eaten. C. I have a regular habit of overeating during the night. It seems that my routine is not to be hungry in the morning but overeat in the evening. D. In my adult years, I have had week-long periods where I practically starve myself. This follows periods when I overeat. It seems I live a life of either feast or famine. Response Group 9: C Group 10 A. I usually am able to stop eating when I want to. I know when enough is enough. B. Every so often, I experience a compulsion to eat which I can't seem to control. C. Frequently, I experience strong urges to eat which I seem unable to control, but at other times I can control my eating urges. D. I feel incapable of controlling urges to eat. I have a fear of not being able to stop eating voluntarily. Response Group 10: D Group 11 A. I don't have any problem stopping eating when I feel full. B. I usually can stop eating when I feel full but occasionally overeat leaving me feeling uncomfortably stuffed. C. I have a problem stopping eating once I start and usually I feel uncomfortably stuffed after I eat a meal. D. Because I have a problem not being able to stop eating when I want, I sometimes have to induce vomiting to relieve my stuffed feeling. Response Group 11: C Group 12 A. I seem to eat just as much when I'm with others, Family social gatherings as when I'm by myself. B. Sometimes, when I'm with other persons, I don't eat as much as I want to eat because I'm self-conscious about my eating. C. Frequently, I eat only a small amount of food when others are present, because I'm very embarrassed about my eating. D. I feel so ashamed about overeating that I pick times to overeat when I know no one will see me. I feel like a closet eater. Response Group 12: C Group 13 A. I eat three meals a day with only an occasional between meal snack. B. I eat 3 meals a day, but I also normally snack between meals. C. When I am snacking heavily, I get in the habit of skipping regular meals. D. There are regular periods when I seem to be continually eating, with no planned meals. Response Group 13: C Group 14 A. I don't think much about trying to control unwanted eating urges. B. At least some of the time, I feel my thoughts are pre-occupied with trying to control my eating urges. C. I feel that frequently I spend much time thinking about how much I ate or about trying not to eat anymore. D. It seems to me that most of my waking hours are pre-occupied by thoughts about eating or not eating. I feel like I'm constantly struggling not to eat. Response Group 14: C Group 15 A. I don't think about food a great deal. B. I have strong craving for food but they last only for brief periods of time. C. I have days when I can't seem to think about anything else but food. D. Most of my days seem to be pre-occupied with thoughts about food. I feel like I live to eat. Response Group 15: D Group 16 A. I usually know whether or not I'm physically hungry. I take the right portion of food to satisfy me. B. Occasionally, I feel uncertain about knowing whether or not I'm physically hungry. A these times it's hard to know how much food I should take to satisfy me. C. Even though I might know how many calories I should eat, I don't have any idea what is a normal amount of food for me. Response Group 16: C Binge Eating Score: 37 Score less than 17 Minimal Risk Score between 18-26 Moderate Risk Score between 27-46 High Risk Assessment & Plan Assessment & Plan (1) Depression: Code(s): F32.A - Depression, unspecified Qualifiers: Depression Type: major depressive disorder Major depression episode severity: moderate Major depression recurrence: recurrent (2) Panic anxiety syndrome: Code(s): F41.0 - Panic disorder [episodic paroxysmal anxiety] (3) Pre-bariatric surgery psychological evaluation: Code(s): Z71.89 - Other specified counseling Plan The patient has been cleared from a behavioral health standpoint and can to be submitted for insurance approval when ready. She is scheduled to return in one month for continued support and will be seen again post-operatively if she decides to proceed with surgery. Next dariana: 05/21/2025 at 1pm Telehealth Telehealth Telehealth Platform: [employer] Location of provider rendering services: other Location of patient: address on file Patient Identification confirmed using: Name, : Yes Telehealth method: video Patient verbally consented to treatment: Yes Patient verbally consented to billing insurance company: Yes Patient informed of any privacy concerns related to visit: Yes Minutes spent on Phone/Video with Pt.: 60 Coding Level of Care Code Established Pt Tele Psytx >53 mins (31000) Patient Type Established Diagnoses Depression F32.A Depression Type: major depressive disorder Major depression episode severity: moderate Major depression recurrence: recurrent Panic anxiety syndrome F41.0 Pre-bariatric surgery psychological evaluation Z71.89 Additional Codes PHQ-9 - 19988 - PHQ-9 Billing: Yes ([id number]) Time Spent (min) 60
== END 2025-04-25 13:25 | disposition home or self-care (01) ==
LOC: HO.HBST 12:19
PROVIDERS: PCP Internal Medicine; Visit Provider Counselor Mental Health
DX: F32.1 Major depressive disorder, single episode, moderate (principal); F41.0 Panic disorder [episodic paroxysmal anxiety]; Z71.89 Other specified counseling
CPT/HCPCS: 90837

== ENCOUNTER → 2025-04-25 12:19 | Outpatient (BNVA) | payer OTHER, SELFPAY | PROVIDERS: PCP Internal Medicine; Visit Provider Counselor Mental Health ==

== ENCOUNTER 2025-04-26 08:33 | Outpatient (AMB) | payer OTHER, SELFPAY ==
--- NOTE | 2025-04-26 08:36 | A.OFFPC_ITS ---
Intake Visit Reasons: f/u starting Buspirone Allergies No Known Allergies Allergy (Verified 03/29/25 08:34) Medication List - Last Reconciled 04/26/25 by Yumiko Falk MD bupropion HCl XL (Wellbutrin XL) 300 mg PO QAM buspirone 10 mg PO BID PRN cholecalciferol (vitamin D3) 25 mcg PO DAILY 90 days cholecalciferol (vitamin D3) 125 mcg PO DAILY ferrous sulfate 324 mg PO .qd 90 days iron,carbonyl-vitamin C 65 mg iron- 125 mg (Vitron-C) 1 tab PO DAILY mecobalamin (vitamin B12) 1,000 mcg sublingual DAILY vitamin A palmitate 3,000 mcg PO DAILY Tobacco use date assessed: 03/29/25 Dental Screening Dental Screen Date: 03/29/25 HPI f/u starting Buspirone HPI Details History - The patient is a 30-year-old female pr esenting with anxiety. - Anxiety: The patient was started on bu spirone after reporting significant anxiety symptoms. - She is currently taking buspirone and reports that it helps control her symptoms. - Depression: The patient is also on bup ropion for depression, which is stable at this time. - Anemia: The patient was found to be sl ightly anemic with a hemoglobin level of 11.1 g/dL, attributed to heavy menstrual cycles. - Iron studies showed an iron saturation of 10% and a ferritin level of 17 ng/mL. - She is currently taking an iron supple ment. - Vitamin D deficiency: The patient was noted to have low vitamin D levels and is advised to continue supplementation. Problem List - Anxiety - Depression - Anemia - Vitamin D deficiency Patient Instructions - Continue taking buspirone as prescribe d for anxiety management. - Reach out to the pharmacy for a refill when needed. - Continue taking iron supplements to ad dress anemia. - Continue vitamin D supplementation as advised. Review of Systems - General: No fever no chills - Neurological: No headaches no dizziness - Ear nose throat: No sore throat no hearing difficulty no ear pain - Cardiovascular: No syncope, no chest pain, no palpitations - Gastrointestinal: No nausea vomiting or diarrhea PFSH Medical History Anxiety Anemia GERD (gastroesophageal reflux disease) Depression Family History Sister Cervical cancer HTN (hypertension) Mother Diabetes Father Diabetes HTN (hypertension) Social History Housing: House Patient Tobacco Use Status: Current everyday Tobacco user e-Cigarette/Vaping Use: Currently Using service: No Cognitive needs: No Hearing needs: No Vision needs: Yes Questionnaire Thrive Questionnaire Date Thrive assessed: 12/26/24 DANIELE-7 AMB Questionnaire DANIELE-7 Date DANIELE - 7 assessed: 12/26/24 Source: Developed by Drs. Helio Matute, Celina Monge, Nasim Charles and colleagues, with an educational johnson from [employer]. Physical exam (Primary Care) Tobacco/Smoking Status: Tobacco use Status Tobacco use date assessed 03/29/25 03/29/25 08:35 Patient Tobacco Use Status Current everyday Tobacco 04/18/25 10:39 e-Cigarette/Vaping Use Currently Using 03/29/25 08:31 Thrive Assessment: Date of Thrive Assessment Date Thrive assessed 12/26/24 03/29/25 08:31 Telehealth Telehealth Telehealth Platform: [facility] Location of provider rendering services: practice address Location of patient: address on file Patient Identification confirmed using: Name, : Yes Telehealth method: video (attempted) Patient verbally consented to treatment: Yes Patient verbally consented to billing insurance company: Yes Patient informed of any privacy concerns related to visit: Yes Minutes spent on Phone/Video with Pt.: 13 Coding Level of Care Code Tele Est Pt Level 3 (15847) Diagnoses Major depressive disorder, severe F32.2 Panic anxiety syndrome F41.0 Microcytic anemia D50.9 Assessment & Plan Assessment & Plan (1) Major depressive disorder, severe: Code(s): F32.2 - Major depressive disorder, single episode, severe without psychotic features Category: Medical (2) Panic anxiety syndrome: Code(s): F41.0 - Panic disorder [episodic paroxysmal anxiety] Category: Medical (3) Microcytic anemia: Code(s): D50.9 - Iron deficiency anemia, unspecified Category: Medical Plan History - The patient is a 30-year-old female presenting with anxiety. - Anxiety: The patient was started on buspirone after reporting significant anxiety symptoms. - She is currently taking buspirone and reports that it helps control her symptoms. - Depression: The patient is also on bupropion for depression, which is stable at this time. - Anemia: The patient was found to be slightly anemic with a hemoglobin level of 11.1 g/dL, attributed to heavy menstrual cycles. - Iron studies showed an iron saturation of 10% and a ferritin level of 17 ng/mL. - She is currently taking an iron supplement. - Vitamin D deficiency: The patient was noted to have low vitamin D levels and is advised to continue supplementation. Problem List - Anxiety - Depression - Anemia - Vitamin D deficiency Patient Instructions - Continue taking buspirone as prescribed for anxiety management. - Reach out to the pharmacy for a refill when needed. - Continue taking iron supplements to address anemia. - Continue vitamin D supplementation as advised. Review of Systems - General: No fever no chills - Neurological: No headaches no dizziness - Ear nose throat: No sore throat no hearing difficulty no ear pain - Cardiovascular: No syncope, no chest pain, no palpitations - Gastrointestinal: No nausea vomiting or diarrhea Medications: Changed From buspirone 10 mg PO BID PRN 30 tabs 0RF anxiety To buspirone 10 mg PO .qd PRN 90 tabs 0RF anxiety 90 days
== END 2025-04-26 08:55 | disposition home or self-care (01) ==
LOC: HO.HMCC 08:33
PROVIDERS: PCP Internal Medicine; Visit Provider Internal Medicine
DX: F32.2 Major depressive disorder, single episode, severe without psychotic features (principal); F41.0 Panic disorder [episodic paroxysmal anxiety]; D50.9 Iron deficiency anemia, unspecified

== ENCOUNTER → 2025-04-26 08:33 | Outpatient (BNVA) | payer OTHER, SELFPAY | PROVIDERS: PCP Internal Medicine; Visit Provider Internal Medicine ==

== ENCOUNTER 2025-05-04 10:14 | Outpatient (REF) | payer OTHER, SELFPAY ==
--- NOTE | ~2025-05-04 | US_ITS ---
EXAMINATION: US COMPLETE ABDOMEN WITH LIVER ELASTOGRAPHY CLINICAL INFORMATION: Morbid obesity due to excess calories. COMPARISON: None available. TECHNIQUE: Real-time imaging of the abdominal viscera. Noninvasive ultrasound liver fibrosis assessment is performed using Connie ElastPQ point quantification shear wave elastography (pSWE) with a C5-2 MHz transducer. Multiple elastography samples are obtained. FINDINGS: PANCREAS: The visualized pancreatic head and body are normal in appearance. The remainder of the pancreas is obscured from visualization by the overlying bowel gas. ABDOMINAL AORTA: No aortic aneurysm is seen. INFERIOR VENA CAVA: Visualized portions are normal. LIVER: The liver demonstrates normal size, and contour. There is mildly diffusely increased echogenicity. No focal lesion or intrahepatic biliary duct dilatation. The right lobe measures 16.6 cm in length. The left lobe measures 9.0 cm in length. Portal flow is towards the liver (hepatopetal). Shear wave liver elastography median stiffness is 2.0 m/s (reference: normal median stiffness is 1.3 m/s or less). IQR/median stiffness to assess sampling precision is 0.09 (reference: good quality data set is IQR/median stiffness of 0.15 or less). GALLBLADDER: The gallbladder is physiologically distended without evidence of stones, sludge, wall thickening or pericholecystic fluid. There is a 5 x 5 mm polyp along the anterior wall. Negative sonographic Worthington's sign. COMMON BILE DUCT: Normal in caliber measuring 0.4 cm in diameter. RIGHT KIDNEY: No hydronephrosis. No renal calculi or focal parenchymal lesions. The kidney measures 11.2 cm in maximum dimension. LEFT KIDNEY: No hydronephrosis. No renal calculi or focal parenchymal lesions. The kidney measures 12.8 cm in maximum dimension. SPLEEN: Unremarkable. The spleen measures 10.5 cm in maximum dimension. FREE FLUID: None seen. US/US abdomen comp w elastography IMPRESSION: 1. Diffusely increased hepatic echogenicity suggestive of fatty infiltration. No suspicious focal lesion. 2. Liver elastography: Measurements are suggestive of compensated advanced chroniic liver disease but need further test for confirmation. 3. Small 5 mm gallbladder polyp. No follow-up recommended. Gallbladder otherwise normal. REFERENCE: Society of Radiologists in Ultrasound Liver Stiffness Thresholds (2020): LIVER STIFFNESS THRESHOLDS: *Liver Stiffness equal or less than 1.3 m/s: High probability of being normal. *Liver Stiffness less than 1.7 m/s: In the absence of other known clinical signs, rules out compensated advanced chronic liver disease. *Liver Stiffness 1.7-2.1 m/s: Suggestive of compensated advanced chronic liver disease but need further test for confirmation. *Liver Stiffness over 2.1 m/s: Rules in compensated advanced chronic liver disease. *Liver Stiffness over 2.4 m/s: Suggestive of clinically significant portal hypertension. QUALITY OF DATA SET: *IQR/Median value equal or less than 0.15 implies a quality data set. *IQR/Median value over 0.15 implies a poor quality data set. SIGNIFICANT CHANGE FROM PRIOR EXAM: Significant change if liver stiffness measurement is 10% or greater from prior exam. OTHER CONSIDERATIONS: The stage of liver fibrosis may be overestimated in the setting of acute hepatitis, liver inflammation, elevated liver function tests, hepatic vascular congestion, obstructive cholestasis, non-fasting state, and infiltrative diseases such as amyloidosis and lymphoma. In some patients with NAFLD, the liver stiffness thresholds for compensated advanced chronic liver disease may be lower. In causes other than viral hepatitis and NAFLD, liver stiffness thresholds are not well established. Electronically signed by: Alex Choe MD 05/04/2025 11:07 AM EDT
== END 2025-05-04 10:15 | disposition home or self-care (01) ==
LOC: HO.US 10:14
PROVIDERS: PCP Internal Medicine; Visit Provider Surgery
DX: E66.01 Morbid (severe) obesity due to excess calories (principal); R03.0 Elevated blood-pressure reading, without diagnosis of hypertension; K21.9 Gastro-esophageal reflux disease without esophagitis
CPT/HCPCS: 76700; 76981

== ENCOUNTER → 2025-05-04 10:16 | Outpatient (BNV) | payer OTHER, SELFPAY | PROVIDERS: PCP Internal Medicine; Visit Provider Radiology Diagnostic Radiology | DX: E66.01 Morbid (severe) obesity due to excess calories (principal) | CPT/HCPCS: 76700 ==

== ENCOUNTER 2025-05-21 13:12 | Outpatient (AMB) | payer OTHER, SELFPAY ==
--- NOTE | 2025-05-21 13:05 | A.OFFWM_ITS ---
Intake Intake Visit Reasons: VIDEO BH F/U Allergies No Known Allergies Allergy (Verified 03/29/25 08:34) [facility] Medical History Anxiety Anemia GERD (gastroesophageal reflux disease) Depression Family History Sister Cervical cancer HTN (hypertension) Mother Diabetes Father Diabetes HTN (hypertension) Social History Housing: House Patient Tobacco Use Status: Current everyday Tobacco user e-Cigarette/Vaping Use: Currently Using service: No Cognitive needs: No Hearing needs: No Vision needs: Yes Behavioral Health Assessment Weight Management Therapy Therapy Notes Details Subjective: The patient reports she is generally doing well, though she feels a little tired of the same shakes. She is currently awaiting insurance approval for surgery. She states her mental health is stable, denies any active symptoms of depression or anxiety, and notes that her PCP continues to manage her medications without issue. Objective: The patient presented for a behavioral health pre-operative evaluation. She was alert, appropriately groomed, and engaged throughout the session. Functioning and ongoing challenges were discussed, with particular attention to her readiness for surgery. The patient demonstrated insight into her care and collaborated on strategies to maintain adherence to her meal plan post-opera tively. No evidence of acute psychiatric symptoms was observed. Assessment/Response: Mental status exam was within normal limits. No risk factors or safety concerns were identified. The patient is stable, with only mild and well-managed mental health concerns. She remains motivated, engaged, and demonstrates appropriate insight and judgment. There are no indications for a higher level of care at this time. Food/Weight/Diet Expectations of change PT started the program on 03/05/2025 at 233Lbs, and most recent weight as of yesterday 04/24/2025 was 222Lbs. PT is not sure if she needs to lose certain amount of weight prior to surgery. She doesn't have an specific post-op weight goal, her goals are based on improving her lifestyle, and have a healthy relationship with food. Most recent weight as of 05/16/25: 220Lbs PT is implementing the following Meal plan: Combination of shakes, bars and 1 meal at days. Exercise plan: Treadmill plan given by the Dr. Bowie does it 3-4 days at week, tries to burn 400Cal. scale: Yes. Communication with provider: Wednesdays. Questionnaires PHQ-9 Over the last 2 weeks, how often have you been bothered by any of the following problems? 1. Little interest or pleasure in doing things: not at all 2. Feeling down, depressed, or hopeless: not at all 3. Trouble falling or staying asleep, or sleeping too much: not at all 4. Feeling tired or having little energy: not at all 5. Poor appetite or overeating: not at all 6. Feeling bad about yourself - or that you are a failure or have let yourself or your family down: not at all 7. Trouble concentrating on things, such as reading the newspaper or watching television: not at all 8. Moving or speaking so slowly that other people could have noticed. Or the opposite - being so fidgety or restless that you have been moving around a lot more than usual: not at all 9. Thoughts that you would be better off or of hurting yourself in some way: not at all Total score: 0 Depression Screening Interpretation: Negative Depression Screening Done: Yes 09463 - PHQ-9 Billing: Yes Source: Developed by Drs. Helio Matute, Celina Monge, Nasim Charles and colleagues, with an educational johnson from [employer]. Assessment & Plan Assessment & Plan (1) Depression: Code(s): F32.A - Depression, unspecified Qualifiers: Depression Type: major depressive disorder Major depression recurrence: recurrent Major depression episode severity: moderate (2) Panic anxiety syndrome: Code(s): F41.0 - Panic disorder [episodic paroxysmal anxiety] (3) Pre-bariatric surgery psychological evaluation: Code(s): Z71.89 - Other specified counseling Plan The patient will continue with her current treatment plan and medication regimen as managed by her PCP. She will maintain regular follow-up as scheduled. No additional behavioral health interventions are indicated at this time. She is an appropriate candidate for surgery from a behavioral health perspective and has been cleared A follow-up behavioral health visit will be scheduled 1?4 weeks postoperatively to assess psychological adjustment and screen for any concerns. Next appointment: 1-4 Weeks Post-op. Telehealth Telehealth Telehealth Platform: [facility] Location of provider rendering services: other (Home office. [place], [place]) Location of patient: address on file Patient Identification confirmed using: Name, : Yes Telehealth method: video Patient verbally consented to treatment: Yes Patient verbally consented to billing insurance company: Yes Patient informed of any privacy concerns related to visit: Yes Minutes spent on Phone/Video with Pt.: 55 Coding Level of Care Code Established Pt Tele Psytx >53 mins (38553) Patient Type Established Diagnoses Depression F32.A Depression Type: major depressive disorder Major depression recurrence: recurrent Major depression episode severity: moderate Panic anxiety syndrome F41.0 Pre-bariatric surgery psychological evaluation Z71.89 Additional Codes PHQ-9 - 36315 - PHQ-9 Billing: Yes ([id number]) Time Spent (min) 55
== END 2025-05-21 14:15 | disposition home or self-care (01) ==
LOC: HO.HBST 13:12
PROVIDERS: PCP Internal Medicine; Visit Provider Counselor Mental Health
DX: F32.1 Major depressive disorder, single episode, moderate (principal); F41.0 Panic disorder [episodic paroxysmal anxiety]; Z71.89 Other specified counseling
CPT/HCPCS: 90837

== ENCOUNTER 2025-06-15 09:26 | Outpatient (REF) | payer OTHER, SELFPAY ==
--- NOTE | ~2025-06-15 | FL_ITS ---
EXAMINATION: XR FLUOROSCOPY UPPER GI WITH AIR CLINICAL INFORMATION: Severe obesity due to excess calories. COMPARISON: None available. TECHNIQUE: Routine upper GI contrast study was performed in upright and lying position. FINDINGS: Following oral administration of thick barium and effervescent granules is normal propagation of bolus from the oral cavity through the pharynx, esophagus into stomach without any evidence of obstruction, narrowing or stricture. There is no intrinsic obstruction or extrinsic compression seen. On placing patient supine and prone lying the course, caliber and peristalsis of the stomach, duodenal bulb and sweep is normal. The mucosal pattern of stomach and the duodenum is normal. FLUOROSCOPY TIME: 1 minute 32 seconds DOSE AREA PRODUCT: 1462 uGy-m2 (microgray-meter squared) FL/FL upper GI w air IMPRESSION: Unremarkable upper GI air contrast study. Electronically signed by: Deven Islas MD 06/15/2025 10:45 AM EDT
== END 2025-06-15 09:27 | disposition home or self-care (01) ==
LOC: HO.XRAY 09:26
PROVIDERS: PCP Internal Medicine; Visit Provider Surgery
DX: E66.01 Morbid (severe) obesity due to excess calories (principal); K21.9 Gastro-esophageal reflux disease without esophagitis; R03.0 Elevated blood-pressure reading, without diagnosis of hypertension
CPT/HCPCS: 74246

== ENCOUNTER → 2025-06-15 09:27 | Outpatient (BNV) | payer OTHER, SELFPAY | PROVIDERS: PCP Internal Medicine; Visit Provider Radiology Diagnostic Radiology | DX: E66.01 Morbid (severe) obesity due to excess calories (principal) | CPT/HCPCS: 74246 ==

== ENCOUNTER 2025-08-31 13:47 | Outpatient (AMB) | payer OTHER, SELFPAY ==
[2025-08-31 13:49] VITALS: BP 118/84; PULSE 61; RESP 15; TEMP 37.2; O2SAT 100; BMI 40.7
--- NOTE | 2025-08-31 13:49 | A.OFFPC_ITS ---
Vital Signs 08/31/25 13:49 Height 5 ft 4 in Weight 237 lb BMI 40.7 BP 118/84 Blood Pressure Location Lt brachial Position Sitting Respiration 15 Pulse 61 Pulse Source Pulse Oximeter Temp 98.9 F Temp Source Oral Pulse Oximetry (%) 100 Oxygen Delivery Method Room Air Intake Visit Reasons: PE Test Grader Required: No Allergies No Known Allergies Allergy (Verified 08/31/25 13:50) Medication List - Last Reconciled 08/31/25 by Yumiko Falk MD bupropion HCl XL (Wellbutrin XL) 300 mg PO QAM buspirone 10 mg PO .qd PRN 90 days cholecalciferol (vitamin D3) 125 mcg PO DAILY ferrous sulfate 324 mg PO .qd 90 days iron,carbonyl-vitamin C 65 mg iron- 125 mg (Vitron-C) 1 tab PO DAILY mecobalamin (vitamin B12) 1,000 mcg sublingual DAILY vitamin A palmitate 3,000 mcg PO DAILY Tobacco use date assessed: 08/31/25 Dental Screening Dental Screen Date: 08/31/25 Did you have a dental visit in the last 12 months?: Yes Did you have a dental problem in the last 6 months where you did not have access to dental care?: Yes Was dental information given to patient?: Patient has dentist HPI PE HPI Details PE and ER visit f/u The patient is a 30 year old female presenting with evaluation of a recent syncopal episode and management of anemia. l Syncope: - Patient reported fainting at work last week, leading to an emergency room visit. - The event occurred in the morning afte r consuming a granola bar for breakfast. - Describes feeling dizzy, with room spi nning, and experiencing blackness before passing out. - No prior episodes; first occurrence of syncopal event. - No palpitations or chest pain noted; h ydration status questioned. - work up in ER was Neg Anemia: - History of low hemoglobin recorded at 11.1 g/dL in March. - Anemic likely due to heavy menstrual b leeding; evaluation pending. - Last [employer] appointment on July 11 to investigate further; repeat labs suggested. Anxiety Disorder: - Ongoing management with buspirone 10 m g daily. - symptoms controlled Major Depressive Disorder: - Managed with bupropion, currently requ iring a refill of Wellbutrin. Gastroesophageal Reflux Disease (suspected) due to Nausea every morning - Reports of sustained nausea, primarily in the morning. - Nausea might be linked to possible ref lux; exacerbated by minimal morning intake. Migraine: - Patient experiences frequent headaches , indicative of migraine without visual disturbances. - Headaches remain constant, despite obt aining new glasses. Medical History: - Anxiety Disorder, managed with buspiro ne - Major Depressive Disorder, managed wit h bupropion - Anemia, recently diagnosed with low he moglobin - Heavy Menstrual Bleeding - History of Vasovagal Syncope Social History: - Reports occasional vaping, but denies smoking. - Occasional alcohol intake on weekends; denied drinking around syncopal event. - Diet in the mornings generally consist s of a granola bar; noted inadequate intake concerns. - Reports recent weight loss initiatives , previously under Dr. Kiran? care. surgery declined by insurance [place] [facility] : Obgyn with [facility] Diagnostic results - Labs: Hemoglobin noted at 11.1 g/dL in March, indicative of anemia. Patient Instructions - Ensure adequate hydration, particularl y mornings; consume a full glass of water before breakfast. - Follow prescribed medications: Maintalakshmi n current doses of bupropion and buspirone. - Respect dietary adjustments, integrati ng a turk breakfast. - Monitoring for any recurrent syncopal episodes; seek help if symptoms recur. - Repeat lab tests to check hemoglobin l evels; follow up as scheduled for [employer] appointment. - Consider prescribed medication trial f or nausea possibly linked to reflux. Omperazole 20 mg set - start Amitryptline 10 mg at night for migarin prevention f.u 3 wks Review of Systems - General: No fever no chills - Ear nose throat: No sore throat no hearing difficulty no ear pain - Cardiovascular: no chest pain, no palpitations - Gastrointestinal: No nausea vomiting or diarrhea - Endocrine: No polyuria polydipsia no heat intolerance - Genitourinary: No dysuria - Skin: No new complaints Physical Exam General: Cooperative, healthy appearing, comfortable, no acute distress Orientation: Patient oriented x3 Head: Normal to inspection Ears: Within normal limit visually Nose: Normal external nose present Face and sinus: Normal facial exam Eyes: Appearance normal, extraocular movement intact pupils reactive Neck: Normal visual inspection and supple Respiratory: Normal respiratory effort and able to speak in complete sentences. Clear to auscultation, no stridor Cardiovascular: S1 and S2 RRR Breast exam thru Obgyn GI: Normal to inspection. Soft to palpation and nontender Skin: Turgor normal, no acute findings Neuro: Patient oriented x3, motor sensory intact, balance intact, tandem pass Extremities: Normal to inspection, no varicose veins noted . [facility] Medical History Anxiety Anemia GERD (gastroesophageal reflux disease) Depression Family History Sister Cervical cancer HTN (hypertension) Mother Diabetes Father Diabetes HTN (hypertension) Social History Housing: House Patient Tobacco Use Status: Current everyday Tobacco user e-Cigarette/Vaping Use: Currently Using service: No Cognitive needs: No Hearing needs: No Vision needs: Yes Questionnaire Thrive Questionnaire Date Thrive assessed: 12/26/24 I am a: Patient What is your living situation today?: I have a steady place to live Within the past 12 months, did the food you bought not last and you didn't have the money to get more?: Never true Within the past 12 months, did you worry whether your food would run out before you got money to buy more?: Never true Do you have trouble paying for medicines?: No Do you have trouble getting transportation to medical appointments?: No Do you have trouble paying your heating and electricity bill?: No Do you have trouble taking care of your child, family member or friend?: No Do you have trouble with day-to-day activities such as bathing, preparing meals, shopping, managing finances, etc.?: No Are you currently unemployed and looking for a job?: No Are you interested in more education?: No Please select the resources that you would like help with: None Currently or been in a relationship where the following occur: No concerns reported THRIVE Score: 0 DANIELE-7 AMB Questionnaire DANIELE-7 Date DANIELE - 7 assessed: 12/26/24 Source: Developed by Drs. Helio Matute, Celina Monge, Nasim Charles and colleagues, with an educational johnson from [employer]. Physical exam (Primary Care) Vital Signs: Last Vital Signs Temp 98.9 F 08/31/25 13:49 Pulse 61 10/24/25 13:49 Resp 15 08/31/25 13:49 BP 118/84 08/31/25 13:49 Pulse Ox 100 08/31/25 13:49 Oxygen Delivery Method Room Air 08/31/25 13:49 BMI result Body Mass Index 40.7 Tobacco/Smoking Status: Tobacco use Status Tobacco use date assessed 08/31/25 08/31/25 13:55 Patient Tobacco Use Status Current everyday Tobacco 08/31/25 13:55 e-Cigarette/Vaping Use Currently Using 08/31/25 13:55 Thrive Assessment: Date of Thrive Assessment Date Thrive assessed 12/26/24 08/31/25 13:55 Currently or been in a relationship where the following occur: No concerns reported Coding Level of Care Code Est Pt Level 4 (54622) Est Pt Prev Care 18-39y(75096) Diagnoses Encounter for general adult medical examination with abnormal findings Z00.01 Vasovagal syncope R55 Syncope type: vasovagal syncope Panic anxiety syndrome F41.0 Major depressive disorder, severe F32.2 Microcytic anemia D50.9 Vitamin B12 deficiency E53.8 Morbid obesity due to excess calories E66.01 Vitamin D deficiency E55.9 Assessment & Plan Assessment & Plan (1) Encounter for general adult medical examination with abnormal findings: Code(s): Z00.01 - Encounter for general adult medical examination with abnormal findings Category: Medical (2) Syncopal episodes: Code(s): R55 - Syncope and collapse Category: Medical Qualifiers: Syncope type: vasovagal syncope Qualified Code(s): R55 - Syncope and collapse (3) Panic anxiety syndrome: Code(s): F41.0 - Panic disorder [episodic paroxysmal anxiety] Category: Medical (4) Major depressive disorder, severe: Code(s): F32.2 - Major depressive disorder, single episode, severe without psychotic features Category: Medical (5) Microcytic anemia: Code(s): D50.9 - Iron deficiency anemia, unspecified Category: Medical (6) Vitamin B12 deficiency: Code(s): E53.8 - Deficiency of other specified B group vitamins Category: Medical (7) Morbid obesity due to excess calories: Code(s): E66.01 - Morbid (severe) obesity due to excess calories Category: Medical (8) Vitamin D deficiency: Code(s): E55.9 - Vitamin D deficiency, unspecified Category: Medical Plan Syncope: - Patient reported fainting at work last week, leading to an emergency room visit. - The event occurred in the morning after consuming a granola bar for breakfast. - Describes feeling dizzy, with room spinning, and experiencing blackness before passing out. - No prior episodes; first occurrence of syncopal event. - No palpitations or chest pain noted; hydration status questioned. - work up in ER was Neg Anemia: - History of low hemoglobin recorded at 11.1 g/dL in March. - Anemic likely due to heavy menstrual bleeding; evaluation pending. - Last [employer] appointment on August 07 to investigate further; repeat labs suggested. Anxiety Disorder: - Ongoing management with buspirone 10 mg daily. - symptoms controlled Major Depressive Disorder: - Managed with bupropion, currently requiring a refill of Wellbutrin. Gastroesophageal Reflux Disease (suspected) due to Nausea every morning - Reports of sustained nausea, primarily in the morning. - Nausea might be linked to possible reflux; exacerbated by minimal morning intake. Migraine: - Patient experiences frequent headaches, indicative of migraine without visual disturbances. - Headaches remain constant, despite obtaining new glasses. Medical History: - Anxiety Disorder, managed with buspirone - Major Depressive Disorder, managed with bupropion - Anemia, recently diagnosed with low hemoglobin - Heavy Menstrual Bleeding - History of Vasovagal Syncope Social History: - Reports occasional vaping, but denies smoking. - Occasional alcohol intake on weekends; denied drinking around syncopal event. - Diet in the mornings generally consists of a granola bar; noted inadequate intake concerns. - Reports recent weight loss initiatives, previously under Dr. Kiran? care. surgery declined by insurance [place] [facility] : Obgyn with [facility] Diagnostic results - Labs: Hemoglobin noted at 11.1 g/dL in March, indicative of anemia. Patient Instructions - Ensure adequate hydration, particularly mornings; consume a full glass of water before breakfast. - Follow prescribed medications: Maintain current doses of bupropion and buspirone. - Respect dietary adjustments, integrating a turk breakfast. - Monitoring for any recurrent syncopal episodes; seek help if symptoms recur. - Repeat lab tests to check hemoglobin levels; follow up as scheduled for [employer] appointment. - Consider prescribed medication trial for nausea possibly linked to reflux. Omperazole 20 mg set - start Amitryptline 10 mg at night for migarin prevention f.u 3 wks . Orders: Orders Complete Blood Count Auto Diff Today D50.9 - Iron deficiency anemia, unspecified, E53.8 - Deficiency of other specified B group vitamins, E55.9 - Vitamin D deficiency, unspecified, E66.01 - Morbid (severe) obesity due to excess calories, F32.2 - Major depressive disorder, single episode, severe without psychotic features, F41.0 - Panic disorder [episodic paroxysmal anxiety], F41.1 - Generalized anxiety disorder, Z00.01 - Encounter for general adult medical examination with abnormal findings Ferritin Today D50.9 - Iron deficiency anemia, unspecified, E53.8 - Deficiency of other specified B group vitamins, E55.9 - Vitamin D deficiency, unspecified, E66.01 - Morbid (severe) obesity due to excess calories, F32.2 - Major depressive disorder, single episode, severe without psychotic features, F41.0 - Panic disorder [episodic paroxysmal anxiety], F41.1 - Generalized anxiety disorder, Z00.01 - Encounter for general adult medical examination with abnormal findings Comprehensive Met. Panel Today D50.9 - Iron deficiency anemia, unspecified, E53.8 - Deficiency of other specified B group vitamins, E55.9 - Vitamin D deficiency, unspecified, E66.01 - Morbid (severe) obesity due to excess calories, F32.2 - Major depressive disorder, single episode, severe without psychotic features, F41.0 - Panic disorder [episodic paroxysmal anxiety], F41.1 - Generalized anxiety disorder, Z00.01 - Encounter for general adult medical examination with abnormal findings Medications: New omeprazole 20 mg PO DAILY 90 caps 0RF amitriptyline 10 mg PO BEDTIME 30 tabs 0RF Refilled bupropion HCl XL (Wellbutrin XL) 300 mg PO QAM 90 tabs 0RF
== END 2025-08-31 14:16 | disposition home or self-care (01) ==
LOC: HO.HMCC 13:48
PROVIDERS: PCP Internal Medicine; Visit Provider Internal Medicine
DX: Z00.01 Encounter for general adult medical examination with abnormal findings (principal); R55 Syncope and collapse; F32.2 Major depressive disorder, single episode, severe without psychotic features; E66.01 Morbid (severe) obesity due to excess calories; Z68.41 Body mass index [BMI] 40.0-44.9, adult; F41.0 Panic disorder [episodic paroxysmal anxiety]; D50.9 Iron deficiency anemia, unspecified; E53.8 Deficiency of other specified B group vitamins; E55.9 Vitamin D deficiency, unspecified